=== PATIENT | male | born 1935 | race Two or more races ===

== ENCOUNTER 2017-10-29 16:23 | Inpatient (IN) | payer MEDICARE ==
[2017-10-29] MEDS ORDERED: FUROSEMIDE 10 MG/ML 4 ML VIAL IV STA (17:06)
[2017-10-29] MEDS ORDERED: IPRATROPIUM-ALBUTEROL 3 ML NEB INHALATION STA (17:06)
--- NOTE | 2017-10-29 17:40 | ED ---
SOB HPI <Guillermo Norman - Last Filed: 10/29/17 19:00> - General Source: patient, RN notes reviewed Mode of arrival: wheelchair Limitations: no limitations <Philip Tejada - Last Filed: 10/29/17 19:03> - General Chief Complaint: Shortness of Breath Stated Complaint: SOB Time Seen by Provider: 10/29/17 16:52 - History of Present Illness Initial Comments: This an 82-year-old male presents emergency Department chief complaint of increased shortness of breath, leg swelling and abdominal swelling. Patient has a history of CHF. He does take Lasix 40 mg twice a day. Patient states he tries to double up on it when he notices symptoms. He states though in the last 24 hours he has had wheezing, wet sounding cough. Patient states he does have leg edema. Patient does state that his weight has increased. Patient denies any known fever, chills. He states he feels distended in his abdomen he did have some diarrhea last week. (Philip Tejada) - Related Data Home Medications Medication Instructions Recorded Confirmed Albuterol Inhaler [Ventolin Hfa 2 puff INHALATION RT-Q6H PRN 11/16/14 10/29/17 Inhaler] Budesonide [Pulmicort] 0.5 mg INHALATION RT-BID 11/16/14 10/29/17 Digoxin [Lanoxin] 250 mcg PO HS 11/16/14 10/29/17 Furosemide [Lasix] 40 mg PO BID 11/16/14 10/29/17 Metoprolol Tartrate [Lopressor] 50 mg PO BID 11/16/14 10/29/17 Simvastatin [Zocor] 10 mg PO DAILY 11/16/14 10/29/17 Warfarin [Coumadin] 3.75 mg PO MOTUWETHSA 05/23/16 10/29/17 Warfarin [Coumadin] 7.5 mg PO SUFR 05/23/16 10/29/17 Sacubitril/Valsartan [Entresto 24 1 tab PO BID 10/29/17 10/29/17 mg-26 mg Tablet] Allergies Allergy/AdvReac Type Severity Reaction Status Date / Time No Known Allergies Allergy Verified 10/29/17 16:56 Review of Systems ROS Other: All systems not noted in ROS Statement are negative. <Guillermo Norman - Last Filed: 10/29/17 19:00> ROS Other: All systems not noted in ROS Statement are negative. <Philip Tejada - Last Filed: 10/29/17 19:03> ROS Statement: Those systems with pertinent positive or pertinent negative responses have been documented in the HPI. Past Medical History Past Medical History: Atrial Fibrillation, Asthma, Cancer, COPD, Hypertension Additional Past Medical History / Comment(s): SKIN CANCER, ARTHRITIS, ENLARGED HEART, RT CATARACT.HAD A PNE VACCINE BUT NOT SURE OF DATE. History of Any Multi-Drug Resistant Organisms: None Reported Past Surgical History: Heart Catheterization, Tonsillectomy Additional Past Surgical History / Comment(s): cataract surgery LT EYE. SKIN CA Past Anesthesia/Blood Transfusion Reactions: No Reported Reaction Past Psychological History: No Psychological Hx Reported Smoking Status: Current every day smoker Past Alcohol Use History: Occasional Past Drug Use History: None Reported - Past Family History Father Family Medical History: No Reported History Additional Family Medical History / Comment(s): LIVED TO BE IN HIS MID 90'S - FROM OLD AGE Mother Family Medical History: No Reported History Additional Family Medical History / Comment(s): LIVED TO BE IN HER MID 90'S FROM OLD AGE <Philip Tejada - Last Filed: 10/29/17 19:03> General Exam Limitations: no limitations General appearance: alert, in no apparent distress Head exam: Present: atraumatic, normocephalic, normal inspection ENT exam: Present: normal exam, normal oropharynx, mucous membranes moist Neck exam: Present: normal inspection, full ROM. Absent: tenderness, meningismus, lymphadenopathy Respiratory exam: Present: wheezes, rales. Absent: normal lung sounds bilaterally, respiratory distress, rhonchi, stridor Cardiovascular Exam: Present: regular rate, normal rhythm, normal heart sounds. Absent: systolic murmur, diastolic murmur, rubs, gallop, clicks GI/Abdominal exam: Present: soft, normal bowel sounds. Absent: distended, tenderness, guarding, rebound, rigid Extremities exam: Present: pedal edema Neurological exam: Present: alert, oriented X3, CN II-XII intact Skin exam: Present: warm, dry, intact, normal color. Absent: rash <Philip Tejada - Last Filed: 10/29/17 19:03> Course <Guillermo Norman - Last Filed: 10/29/17 19:00> <Philip Tejada - Last Filed: 10/29/17 19:03> Vital Signs 10/29/17 10/29/17 10/29/17 16:37 17:19 17:27 Temperature 98 F Pulse Rate 60 83 90 Respiratory 20 16 16 Rate Blood Pressure 125/73 O2 Sat by Pulse 96 Oximetry 10/29/17 19:00 Temperature Pulse Rate 79 Respiratory 20 Rate Blood Pressure 141/87 O2 Sat by Pulse 96 Oximetry - Reevaluation(s) Reevaluation #1: 10/29/17 19:00 PA supervision: I did personally do a [id number] evaluation the patient did discuss findings with him and his family members. Patient does demonstrate decreased breath sounds with wheezing and basilar rales. He does have peripheral edema. He will be admitted I did discuss the case with Dr. Li. (Guillermo Norman) Medical Decision Making - Lab Data Result diagrams: 10/29/17 17:35 10/29/17 17:35 <Guillermo Norman - Last Filed: 10/29/17 19:00> - Lab Data Result diagrams: 10/29/17 17:35 10/29/17 17:35 <Philip Tejada - Last Filed: 10/29/17 19:03> - Lab Data Lab Results 10/29/17 10/29/17 10/29/17 Range/Units 17:35 17:35 17:35 WBC 10.4 (3.8-10.6) k/uL RBC 4.71 (4.30-5.90) m/uL Hgb 14.3 (13.0-17.5) gm/dL Hct 45.4 (39.0-53.0) % MCV 96.3 (80.0-100.0) fL MCH 30.3 (25.0-35.0) pg MCHC 31.5 (31.0-37.0) g/dL RDW 14.4 (11.5-15.5) % Plt Count 442 (150-450) k/uL Neutrophils % 79 % Lymphocytes % 11 % Monocytes % 6 % Eosinophils % 2 % Basophils % 1 % Neutrophils # 8.3 H (1.3-7.7) k/uL Lymphocytes # 1.2 (1.0-4.8) k/uL Monocytes # 0.6 (0-1.0) k/uL Eosinophils # 0.2 (0-0.7) k/uL Basophils # 0.1 (0-0.2) k/uL PT (9.0-12.0) sec INR (<1.2) APTT (22.0-30.0) sec Sodium 143 (137-145) mmol/L Potassium 4.5 (3.5-5.1) mmol/L Chloride 105 (98-107) mmol/L Carbon Dioxide 25 (22-30) mmol/L Anion Gap 13 mmol/L BUN 23 H (9-20) mg/dL Creatinine 0.80 (0.66-1.25) mg/dL Est GFR (MDRD) Af Amer >60 (>60 ml/min/1.73 sqM) Est GFR (MDRD) Non-Af >60 (>60 ml/min/1.73 sqM) Glucose 102 H (74-99) mg/dL Calcium 9.0 (8.4-10.2) mg/dL Magnesium 2.1 (1.6-2.3) mg/dL Total Bilirubin 1.4 H (0.2-1.3) mg/dL AST 27 (17-59) U/L ALT 36 (21-72) U/L Alkaline Phosphatase 88 (38-126) U/L Total Creatine Kinase 58 (55-170) U/L CK-MB (CK-2) 1.6 (0.0-2.4) ng/mL CK-MB (CK-2) Rel Index 2.8 Troponin I <0.012 (0.000-0.034) ng/mL NT-Pro-B Natriuret Pep pg/mL Total Protein 6.5 (6.3-8.2) g/dL Albumin 3.7 (3.5-5.0) g/dL Digoxin 0.6 ng/mL 10/29/17 10/29/17 Range/Units 17:35 17:35 WBC (3.8-10.6) k/uL RBC (4.30-5.90) m/uL Hgb (13.0-17.5) gm/dL Hct (39.0-53.0) % MCV (80.0-100.0) fL MCH (25.0-35.0) pg MCHC (31.0-37.0) g/dL RDW (11.5-15.5) % Plt Count (150-450) k/uL Neutrophils % % Lymphocytes % % Monocytes % % Eosinophils % % Basophils % % Neutrophils # (1.3-7.7) k/uL Lymphocytes # (1.0-4.8) k/uL Monocytes # (0-1.0) k/uL Eosinophils # (0-0.7) k/uL Basophils # (0-0.2) k/uL PT 18.4 H (9.0-12.0) sec INR 2.0 H (<1.2) APTT 27.4 (22.0-30.0) sec Sodium (137-145) mmol/L Potassium (3.5-5.1) mmol/L Chloride (98-107) mmol/L Carbon Dioxide (22-30) mmol/L Anion Gap mmol/L BUN (9-20) mg/dL Creatinine (0.66-1.25) mg/dL Est GFR (MDRD) Af Amer (>60 ml/min/1.73 sqM) Est GFR (MDRD) Non-Af (>60 ml/min/1.73 sqM) Glucose (74-99) mg/dL Calcium (8.4-10.2) mg/dL Magnesium (1.6-2.3) mg/dL Total Bilirubin (0.2-1.3) mg/dL AST (17-59) U/L ALT (21-72) U/L Alkaline Phosphatase (38-126) U/L Total Creatine Kinase (55-170) U/L CK-MB (CK-2) (0.0-2.4) ng/mL CK-MB (CK-2) Rel Index Troponin I (0.000-0.034) ng/mL NT-Pro-B Natriuret Pep 4170 pg/mL Total Protein (6.3-8.2) g/dL Albumin (3.5-5.0) g/dL Digoxin ng/mL - EKG Data EKG Comments: EKG performed at 17:12 A. fib rate of 65 QRS 150 QT/QTC 425/440 (Philip Tejada) Disposition <Guillermo Norman - Last Filed: 10/29/17 19:00> <Philip Tejada - Last Filed: 10/29/17 19:03> Clinical Impression: Acute exacerbation of CHF (congestive heart failure), Dyspnea Disposition: ADMITTED IP TO THIS HOSP Condition: Fair Referrals: Anusha Sommers MD [Primary Care Provider] - 1-2 days
[2017-10-29 17:50] LABS: Basophils # (A) 0.1 k/uL (0-0.2); Basophils % (A) 1 %; Eosinophils # (A) 0.2 k/uL (0-0.7); Eosinophils % (A) 2 %; HCT 45.4 % (39.0-53.0); HGB 14.3 gm/dL (13.0-17.5); Lymphocytes # (A) 1.2 k/uL (1.0-4.8); Lymphocytes % (A) 11 %; MCH 30.3 pg (25.0-35.0); MCHC 31.5 g/dL (31.0-37.0); MCV 96.3 fL (80.0-100.0); Mean Platelet Volume 7.4; Monocytes # (A) 0.6 k/uL (0-1.0); Monocytes % (A) 6 %; Neutrophils # (A) 8.3 k/uL (1.3-7.7); Neutrophils % (A) 79 %; Platelet Count 442 k/uL (150-450); RBC 4.71 m/uL (4.30-5.90); RDW 14.4 % (11.5-15.5); WBC 10.4 k/uL (3.8-10.6)
[2017-10-29 18:03] LABS: ALT 36 U/L (21-72); AST 27 U/L (17-59); Albumin 3.7 g/dL (3.5-5.0); Alkaline Phosphatase 88 U/L (38-126); Anion Gap 13 mmol/L; Blood Urea Nitrogen 23 mg/dL (9-20); Carbon Dioxide 25 mmol/L (22-30); Chloride 105 mmol/L (98-107); Digoxin 0.6 ng/mL; Glucose 102 mg/dL (74-99); Magnesium 2.1 mg/dL (1.6-2.3); Partial Thromboplastin Time 27.4 sec (22.0-30.0); Potassium 4.5 mmol/L (3.5-5.1); Prothrombin Time 18.4 sec (9.0-12.0); Sodium 143 mmol/L (137-145); Total Bilirubin 1.4 mg/dL (0.2-1.3); Total Protein 6.5 g/dL (6.3-8.2)
--- NOTE | 2017-10-29 18:05 | XR ---
EXAMINATION TYPE: XR KUB DATE OF EXAM: 10/29/2017 COMPARISON: NONE HISTORY: Pain and distention with diarrhea TECHNIQUE: 2 upright views FINDINGS: There are no abnormal gas collections evident. The bowel gas pattern is unremarkable as see n. The skeletal structures and soft tissues are negative for acute findings. IMPRESSION: Negative examination.
--- NOTE | 2017-10-29 18:07 | XR ---
EXAMINATION: XR chest 2V DATE AND TIME: 10/29/2017 5:57 PM ORDERING PROVIDER: Philip Tejada CLINICAL INDICATION: difficulty breathing TECHNIQUE: PA and lateral COMPARISON: 06/07/2016 DESCRIPTION: Cardiac pacemaker and EKG leads noted. There is a fine reticular pattern of increased density throughout the lungs which silhouettes the pul monary vasculature to a [id number] degree. This is consistent with interstitial phase pulmonary edema, presumably cardiogenic etiology given the mildly enlarged cardiac silhouette. Small bilateral pleural effusions and pleural effusions are evident posteriorly on the lateral radiog raph. The pleural spaces are otherwise unremarkable. The cardiac silhouette is not mildly enlarged similar to the prior study. The skeletal structures are intact without focal findings. The soft tissues are unremarkable. IMPRESSION: FINDINGS CONSISTENT WITH MILD/MODERATE INTERSTITIAL PHASE CARDIAC PULMONARY EDEMA.
[2017-10-29 18:12] LABS: Creatine Kinase 58 U/L (55-170)
[2017-10-29 18:24] LABS: Creatine Kinase MB 1.6 ng/mL (0.0-2.4); Troponin I <0.012 ng/mL (0.000-0.034)
[2017-10-29] MEDS: IPRATROPIUM-ALBUTEROL 3 ML NEB INHALATION SCH (20:20)
[2017-10-29] MEDS ORDERED: NALOXONE 0.4 MG/ML 1 ML VIAL IV PRN (21:16)
[2017-10-29] MEDS ORDERED: MORPHINE SULFATE 2 MG/ML SYRINGE IV PRN (21:16)
[2017-10-29] MEDS ORDERED: ONDANSETRON 4 MG/2 ML VIAL IVP PRN (21:16)
--- NOTE | 2017-10-29 21:59 | P.HPIM ---
History of Present Illness H&P Date: 10/29/17 Chief Complaint: progressive shortness of breath 82 year old male with history of CHF , afib on coumadin. Patient claims to be compliant with his heart medications, and limits his fluid intake to around 1.5-2 L. He has notice progressive increase in his weight, and swelling of his legs along with progressive worsening of shortness of breath ( exertional) over the past 2 weeks, for which he has doubled up on his lasix dose , however without any noticeable benefit. He also reports orthopnea and PNDs, over the past few days, and noticeable limitation to his activity and climbing stairs due to exertional dyspnea along with coughing, however; denies any chest pain, fever, chills, sick contacts, sputum production, recent heart attacks, or any history of CAD or stenting. He dose report that he had a bout of diarrhea about 1.5 months ago that resolved after two days, however since then his bowel movement has been loose, but denies any bloody or melena BMs. He never had colonoscopy and denies weight loss. I interviewed the patient in the ED , he is very pleasant and reports noticeable improvement in his symptoms after a dose of IV lasix, still denies any chest pain but does report increase abd girth and bloating over the past 1 month. Review of Systems Constitutional: Patient denies fever, denies chills, denies night sweating, denies significant weight changes Eyes: Patient denies visual changes, denies eye pain ENT: Patient denies ear pain, denies rhinorrhea, denies sore throat Cardiovascular: as per HPI Respiratory:Patient as per HPI Gastrointestinal: Patient denies constipation, denies nausea, denies vomiting , denies abdominal pain Genitourinary: Patient denies dysuria, denies hematuria, denies changes in urinary habits, denies genital lesions Musculoskeletal: Patient denies muscle pain, denies joint pain Psychiatric: Patient denies changes in mood or memory, denies suicidal ideation, denies anxiety Endocrine: Patient denies heat intolerance, denies cold intolerance, denies excessive thirst, denies polyuria Neurological: Patient denies focal neurologic deficits, denies weakness, denies numbness, denies tingling Hem/Lymphatic: Patient denies bleeding tendency, denies bruising, denies swollen lymph glands Allergic/Immun: Patient denies recent allergic reactions Skin: Patient denies rashes, denies pruritis, denies ulcers Past Medical History Past Medical History: Atrial Fibrillation, Asthma, Cancer, COPD, Hypertension Additional Past Medical History / Comment(s): SKIN CANCER, ARTHRITIS, ENLARGED HEART, RT CATARACT.HAD A PNE VACCINE BUT NOT SURE OF DATE. History of Any Multi-Drug Resistant Organisms: None Reported Past Surgical History: Heart Catheterization, Tonsillectomy Additional Past Surgical History / Comment(s): cataract surgery LT EYE. SKIN CA Past Anesthesia/Blood Transfusion Reactions: No Reported Reaction Past Psychological History: No Psychological Hx Reported Smoking Status: Current every day smoker Past Alcohol Use History: Occasional Past Drug Use History: None Reported - Past Family History Father Family Medical History: No Reported History Additional Family Medical History / Comment(s): LIVED TO BE IN HIS MID 90'S - FROM OLD AGE Mother Family Medical History: No Reported History Additional Family Medical History / Comment(s): LIVED TO BE IN HER MID 90'S FROM OLD AGE Medications and Allergies Home Medications Medication Instructions Recorded Confirmed Type Albuterol Inhaler [Ventolin Hfa 2 puff INHALATION RT-Q6H PRN 11/16/14 10/29/17 History Inhaler] Budesonide [Pulmicort] 0.5 mg INHALATION RT-BID 11/16/14 10/29/17 History Digoxin [Lanoxin] 250 mcg PO HS 11/16/14 10/29/17 History Furosemide [Lasix] 40 mg PO BID 11/16/14 10/29/17 History Metoprolol Tartrate [Lopressor] 50 mg PO BID 11/16/14 10/29/17 History Simvastatin [Zocor] 10 mg PO DAILY 11/16/14 10/29/17 History Warfarin [Coumadin] 3.75 mg PO MOTUWETHSA 05/23/16 10/29/17 History Warfarin [Coumadin] 7.5 mg PO SUFR 05/23/16 10/29/17 History Sacubitril/Valsartan [Entresto 24 1 tab PO BID 10/29/17 10/29/17 History mg-26 mg Tablet] Allergies Allergy/AdvReac Type Severity Reaction Status Date / Time No Known Allergies Allergy Verified 10/29/17 16:56 Physical Exam Vitals: Vital Signs Temp Pulse Resp BP Pulse Ox 10/29/17 20:31 71 16 10/29/17 20:20 67 18 10/29/17 19:58 98.1 F 75 22 120/72 97 10/29/17 19:00 79 20 141/87 96 10/29/17 17:27 90 16 10/29/17 17:19 83 16 10/29/17 16:37 98 F 60 20 125/73 96 Intake and Output 10/29/17 10/29/17 10/29/17 06:59 14:59 22:59 Output Total 225 Balance -225 Output: Urine 225 Other: Weight 97.069 kg Patient Weight 10/30/17 06:59 Weight 97.069 kg Constitutional: No acute distress, conversant, pleasant Eyes: Anicteric sclerae, moist conjunctiva, no lid-lag Pupils equal round reactive to light ENMT: NC/AT Oropharynx clear, no erythema, exudates Neck: Supple, FROM, no masses, or JVD No carotid bruits No thyromegaly Lungs: Decrease breath sounds, with find inspiratory rales at lung bases along with slightly prolonged expiratory phase with scattered end expiratory wheezes Clear to percussion Normal respiratory effort, no accessory muscle use Cardiovascular: Heart irregularly irregular in rate and rhythm, + systolic murmur, No gallops, or rubs +2 peripheral edema bilateral legs pitting in nature. Abdominal: mildly distended Nontender, no guarding, rebound or rigidity Abdomen moving with respiration Normoactive bowel sounds No hepatomegaly, No splenomegaly No palpable mass No abdominal wall hernia noted Skin: Normal temperature (except for cold feet biaterally ), tone, texture , turgor No induration No subcutaneous nodules No rash, lesions No ulcers Extremities: No digital cyanosis No clubbing Pedal pulses intact and symmetrical Radial pulses intact and symmetrical No calf tenderness Psychiatric: Alert and oriented to person, place Appropriate affect fair judgment Neuro Muscles Strength 4/5 in all 4 extremities Sensation to light touch grossly present throughout Cranial nerves II-XII grossly intact No focal sensory deficits Lymphatics: no palpable cervical or supraclavicular , or inguinal lymph nodes Results CBC & Chem 7: 10/29/17 17:35 10/29/17 17:35 Labs: Abnormal Lab Results - Last 24 Hours (Table) 10/29/17 10/29/17 10/29/17 Range/Units 17:35 17:35 17:35 Neutrophils # 8.3 H (1.3-7.7) k/uL PT 18.4 H (9.0-12.0) sec INR 2.0 H (<1.2) BUN 23 H (9-20) mg/dL Glucose 102 H (74-99) mg/dL Total Bilirubin 1.4 H (0.2-1.3) mg/dL Assessment and Plan Assessment: 82 year old male presented with progressive shortness of breath along with orthopnea, PNDs, and bilateral leg swelling, patient is known for history of heart failure s/p ICD, and afib on coumadin (1) Acute exacerbation of CHF (congestive heart failure) Narrative/Plan: acute exacerbation of left systolic congestive heart failure with most recent ECHOcardiogram from 2016 suggesting a LVEF of 20-25% patient claims compliance with medications , and fluid intake of around 1.5-2 L daily continue with entresto Recheck ECHOcardiogram, evaluate LVEF and progression of aortic valve disease cardiac monitoring elevate head of the bed IV lasix Morphine PRN IV strict I/Os fluid restriction to 1.2 L daily weight Oxygen PRN NC keep O2 sat>92% cardiology consultation consider starting Spironolactone upon discharge Current Visit: Yes Status: Acute Code(s): I50.9 - HEART FAILURE, UNSPECIFIED SNOMED Code(s): 77564643 (2) A-fib Narrative/Plan: chronic afib, with valvular heart disease, on coumadin rate controlled now continue metoprolol and digoxin Current Visit: No Status: Chronic Code(s): I48.91 - UNSPECIFIED ATRIAL FIBRILLATION SNOMED Code(s): 19949264 (3) HTN (hypertension) Narrative/Plan: controlled now continue home meds Current Visit: No Status: Chronic Code(s): I10 - ESSENTIAL (PRIMARY) HYPERTENSION SNOMED Code(s): 23393896 (4) Hyperlipemia Narrative/Plan: continue home meds denies any history of CAD Current Visit: No Status: Chronic Code(s): E78.5 - HYPERLIPIDEMIA, UNSPECIFIED SNOMED Code(s): 77972702 (5) DVT prophylaxis Narrative/Plan: on coumadin for afib Current Visit: Yes Status: Acute Code(s): NCE9315 - SNOMED Code(s): 126352888 (6) Smoking 1/2 pack a day or less Narrative/Plan: counseled to quit smoking nicotine replacement therapy Current Visit: Yes Status: Acute Code(s): F17.210 - NICOTINE DEPENDENCE, CIGARETTES, UNCOMPLICATED SNOMED Code(s): 44835371 (7) Loose bowel movement Narrative/Plan: counseled to consider age appropriate cancer screening testing if continue to have diarrhea especially if he notices bloody bowel movement Current Visit: Yes Status: Acute Code(s): R19.7 - DIARRHEA, UNSPECIFIED SNOMED Code(s): 37637675 (8) COPD (chronic obstructive pulmonary disease) Narrative/Plan: continue pulmicort duoneb PRN oxygen NC counseled to avoid smoking and smoke exposure Current Visit: Yes Status: Chronic Code(s): J44.9 - CHRONIC OBSTRUCTIVE PULMONARY DISEASE, UNSPECIFIED SNOMED Code(s): 89162052 Plan: Preformed a thorough record review from recent hospitalization from 2016, for which ICD was placed, and his most recent echo suggested LVEF of 20-25% with global hypokinesis, and moderate aortic valve stenosis Surrogate decision-maker: sister Elham, and niece Radha CODE STATUS:full code but no intermediate life sustaining measures DVT prophylaxis: on coumadin for valvular Afib Discussed with: Patient, ER, family , RN Anticipated discharge: 48-72 hours, needs aggressive IV diuresis and reevaluate progression of heart failure and aortic valve disease Anticipated discharge place: home with home care
[2017-10-29] MEDS: METOPROLOL TARTRATE 50 MG TAB PO SCH (22:24)
[2017-10-29] MEDS: DIGOXIN 250 MCG TAB PO SCH (22:24)
[2017-10-29] MEDS: ATORVASTATIN 10 MG TAB PO SCH (22:25)
[2017-10-29] MEDS: SACUBITRIL/VALSARTAN 24 MG-26 MG TABLET PO SCH (22:25)
[2017-10-29] MEDS: WARFARIN 7.5 MG TAB PO SCH (22:27)
[2017-10-29 23:39] VITALS: BMI 29.8
[2017-10-30] MEDS: IPRATROPIUM-ALBUTEROL 3 ML NEB INHALATION SCH ×6 (00:01→19:53)
[2017-10-30] MEDS: FUROSEMIDE 10 MG/ML 4 ML VIAL IV SCH ×2 (06:00→17:22)
[2017-10-30] MEDS: BUDESONIDE 0.5 MG/2 ML NEBU INHALATION SCH ×2 (08:24→19:53)
[2017-10-30 08:34] LABS: Basophils # (A) 0.1 k/uL (0-0.2); Basophils % (A) 1 %; Eosinophils # (A) 0.1 k/uL (0-0.7); Eosinophils % (A) 1 %; HCT 43.6 % (39.0-53.0); HGB 13.7 gm/dL (13.0-17.5); Hypochromasia Slight; Lymphocytes % (A) 9 %; MCH 30.4 pg (25.0-35.0); MCHC 31.4 g/dL (31.0-37.0); MCV 96.8 fL (80.0-100.0); Mean Platelet Volume 7.2; Monocytes # (A) 0.6 k/uL (0-1.0); Monocytes % (A) 5 %; Neutrophils # (A) 9.6 k/uL (1.3-7.7); Neutrophils % (A) 84 %; Platelet Count 424 k/uL (150-450); RDW 14.3 % (11.5-15.5); WBC 11.4 k/uL (3.8-10.6)
[2017-10-30 09:01] LABS: Anion Gap 11 mmol/L; Blood Urea Nitrogen 21 mg/dL (9-20); Carbon Dioxide 27 mmol/L (22-30); Chloride 104 mmol/L (98-107); Glucose 102 mg/dL (74-99); INR 1.9 (<1.2); Potassium 4.1 mmol/L (3.5-5.1); Prothrombin Time 17.7 sec (9.0-12.0); Sodium 142 mmol/L (137-145)
[2017-10-30 09:02] LABS: ALT 35 U/L (21-72); AST 20 U/L (17-59); Albumin 3.6 g/dL (3.5-5.0); Alkaline Phosphatase 81 U/L (38-126); Calcium 9.2 mg/dL (8.4-10.2); Total Bilirubin 1.6 mg/dL (0.2-1.3); Total Protein 6.2 g/dL (6.3-8.2)
[2017-10-30] MEDS: SACUBITRIL/VALSARTAN 24 MG-26 MG TABLET PO SCH ×2 (09:50→22:01)
[2017-10-30] MEDS: METOPROLOL TARTRATE 50 MG TAB PO SCH ×2 (09:50→22:01)
[2017-10-30] MEDS: NICOTINE 14MG/24HR PATCH TRANSDERM SCH (09:52)
--- NOTE | 2017-10-30 13:11 | P.CRDCN ---
History of Present Illness Consult date: 10/30/17 History of present illness: Mr. Ingram is a pleasant 82-year-old male past medical history significant for non-ischemic cardiomyopathy status post AICD placement, chronic persistent atrial fibrillation on group home anticoagulation with coumadin, hypertension, COPD and chronic tobacco use. He sees Dr. Beckett in the office. We have been asked to see him in consultation for increasing shortness of breath. He states he chronically has shortness of breath first thing in the morning upon waking up and getting around but over the past few days this has been much worse. It typically resolves within 5 minutes and now is persisting much longer. He also has noticed increased swelling of his lower extremities and weight gain. HEENT denies PND or orthopnea. He denies associated chest pain, dizziness, palpitations, nausea or vomiting. EKG on arrival reveals atrial fibrillation with controlled ventricular response rate of 65 with left bundle branch pattern. This is consistent with old EKG. Chest xray findings consistent with mild/moderate interstitial pulmonary edema. Laboratory data reviewed, WBC 11.4, hemoglobin 13.7, platelets 424, INR 1.9, potassium 4.1, magnesium 2.1, creatinine 0.89, proBNP 4170, cardiac enzymes negative 1, digoxin level 0.6, TSH 2.07. Current cardiac medications include Coumadin, simvastatin 10 mg daily, entresto twice a day, Lopressor 51 g twice a day, Lasix 40 mg twice a day and digoxin 250 g daily. Most recent echocardiogram was performed in the office March 2017 reveals decreased left ventricular systolic function with ejection fraction 35% with mild mitral regurg and moderate aortic regurgitation. Review of Systems At the time of my exam: CONSTITUTIONAL: Denies fever. Denies chills. EYES: Denies blurred vision. Denies vision changes. Denies eye pain. EARS, NOSE, MOUTH & THROAT: Denies headache. Denies sore throat. Denies ear pain. CARDIOVASCULAR: Denies chest pain. Complains of shortness of breath. Denies orthopnea. Denies PND. Denies palpitations. RESPIRATORY: Denies cough. GASTROINTESTINAL: Denies abdominal pain. Complains of diarrhea. Denies constipation. Denies nausea. Denies vomiting. MUSCULOSKELETAL: Denies myalgias. INTEGUMENTARY: Denies pruitis. Denies rash. NEUROLOGIC: Denies numbness. Denies tingling. Denies weakness. PSYCHIATRIC: Denies anxiety. Denies depression. ENDOCRINE: Denies fatigue. Denies weight change. Denies polydipsia. Denies polyurina. GENITOURINARY: Denies burning, hematuria or urgency with micturation. HEMATOLOGIC: Denies history of anemia. Denies bleeding. Past Medical History Past Medical History: Atrial Fibrillation, Asthma, Cancer, COPD, Hypertension Additional Past Medical History / Comment(s): SKIN CANCER, ARTHRITIS, ENLARGED HEART, RT CATARACT.HAD A PNE VACCINE BUT NOT SURE OF DATE. History of Any Multi-Drug Resistant Organisms: None Reported Past Surgical History: Heart Catheterization, Tonsillectomy Additional Past Surgical History / Comment(s): cataract surgery LT EYE. SKIN CA Past Anesthesia/Blood Transfusion Reactions: No Reported Reaction Past Psychological History: No Psychological Hx Reported Smoking Status: Current every day smoker Past Alcohol Use History: Occasional Past Drug Use History: None Reported - Past Family History Father Family Medical History: No Reported History Additional Family Medical History / Comment(s): LIVED TO BE IN HIS MID 90'S - FROM OLD AGE Mother Family Medical History: No Reported History Additional Family Medical History / Comment(s): LIVED TO BE IN HER MID 90'S FROM OLD AGE Medications and Allergies Home Medications Medication Instructions Recorded Confirmed Type Albuterol Inhaler [Ventolin Hfa 2 puff INHALATION RT-Q6H PRN 11/16/14 10/29/17 History Inhaler] Budesonide [Pulmicort] 0.5 mg INHALATION RT-BID 11/16/14 10/29/17 History Digoxin [Lanoxin] 250 mcg PO HS 11/16/14 10/29/17 History Furosemide [Lasix] 40 mg PO BID 11/16/14 10/29/17 History Metoprolol Tartrate [Lopressor] 50 mg PO BID 11/16/14 10/29/17 History Simvastatin [Zocor] 10 mg PO DAILY 11/16/14 10/29/17 History Warfarin [Coumadin] 3.75 mg PO MOTUWETHSA 05/23/16 10/29/17 History Warfarin [Coumadin] 7.5 mg PO SUFR 05/23/16 10/29/17 History Sacubitril/Valsartan [Entresto 24 1 tab PO BID 01/22/18 01/22/18 History mg-26 mg Tablet] Allergies Allergy/AdvReac Type Severity Reaction Status Date / Time No Known Allergies Allergy Verified 10/29/17 16:56 Physical Exam Vitals: Vital Signs Temp Pulse Pulse Resp BP BP Pulse Ox 10/30/17 12:51 78 10/30/17 12:35 78 10/30/17 08:43 82 10/30/17 08:27 76 97 10/30/17 07:00 97.9 F 83 18 135/79 97 10/30/17 05:59 139/75 10/30/17 03:59 80 10/30/17 03:49 86 10/30/17 00:15 76 10/30/17 00:01 72 10/29/17 23:34 97.7 F 71 17 123/78 97 10/29/17 23:06 97.1 F L 86 22 116/76 97 10/29/17 22:28 75 24 143/71 96 10/29/17 20:31 71 16 10/29/17 20:20 67 18 10/29/17 19:58 98.1 F 75 22 120/72 97 10/29/17 19:00 79 20 141/87 96 10/29/17 17:27 90 16 10/29/17 17:19 83 16 10/29/17 16:37 98 F 60 20 125/73 96 Intake and Output 10/29/17 10/30/17 10/30/17 22:59 06:59 14:59 Output Total 225 300 600 Balance -225 -300 -600 Output: Urine 225 300 600 Other: Voiding Method Toilet Toilet Urinal Urinal Weight 97 kg 97 kg 97 kg Patient Weight 10/31/17 06:59 Weight 97 kg Blood pressure 135/79 heart rate 83 afebrile GENERAL: This is a 82-year-old male in no apparent distress at the time of my examination. HEENT: Head is atraumatic, normocephalic. Pupils are equal, round. Sclerae anicteric. Conjunctivae are clear. Mucous membranes of the mouth are moist. Neck is supple. There is no jugular venous distention. No carotid bruit is heard. LUNGS: Faint expiratory wheezes, bibasilar rales and no rhonchi. No chest wall tenderness is noted on palpation or with deep breathing. HEART: Irregular rate and rhythm with systolic ejection murmur at the base, no rubs or gallops. S1 and S2 heard. ABDOMEN: Soft, nontender. Bowel sounds are heard. No organomegaly noted. EXTREMITIES: 1+ pitting bilateral lower extremity edema and no calf tenderness noted. VASCULAR: Radial and dorsalis pedis pulses palpated, no evidence of clubbing. NEUROLOGIC: Patient is awake, alert and oriented x3. Results 10/30/17 07:40 10/30/17 07:40 Cardiac Enzymes 10/29/17 10/29/17 10/30/17 Range/Units 17:35 17:35 07:40 AST 27 20 (17-59) U/L CK-MB (CK-2) 1.6 (0.0-2.4) ng/mL Troponin I <0.012 (0.000-0.034) ng/mL Coagulation 10/29/17 10/30/17 Range/Units 17:35 07:40 PT 18.4 H 17.7 H (9.0-12.0) sec APTT 27.4 (22.0-30.0) sec CBC 10/29/17 10/30/17 Range/Units 17:35 07:40 WBC 10.4 11.4 H (3.8-10.6) k/uL RBC 4.71 4.50 (4.30-5.90) m/uL Hgb 14.3 13.7 (13.0-17.5) gm/dL Hct 45.4 43.6 (39.0-53.0) % Plt Count 442 424 (150-450) k/uL Comprehensive Metabolic Panel 10/29/17 10/30/17 Range/Units 17:35 07:40 Sodium 143 142 (137-145) mmol/L Potassium 4.5 4.1 (3.5-5.1) mmol/L Chloride 105 104 (98-107) mmol/L Carbon Dioxide 25 27 (22-30) mmol/L BUN 23 H 21 H (9-20) mg/dL Creatinine 0.80 0.89 (0.66-1.25) mg/dL Glucose 102 H 102 H (74-99) mg/dL Calcium 9.0 9.2 (8.4-10.2) mg/dL AST 27 20 (17-59) U/L ALT 36 35 (21-72) U/L Alkaline Phosphatase 88 81 (38-126) U/L Total Protein 6.5 6.2 L (6.3-8.2) g/dL Albumin 3.7 3.6 (3.5-5.0) g/dL Current Medications Generic Name Dose Route Start Last Admin Trade Name Freq PRN Reason Stop Dose Admin Albuterol/Ipratropium 3 ml 10/29/17 20:00 10/30/17 12:34 Duoneb 0.5 Mg-3 Mg/3 Ml Soln INHALATION 3 ml RT-Q4H MARILYN Administration Atorvastatin Calcium 10 mg 10/29/17 21:15 10/29/17 22:25 Lipitor PO 10 mg HS MARILYN Administration Budesonide 0.5 mg 10/30/17 08:00 10/30/17 08:24 Pulmicort INHALATION 0.5 mg RT-BID MARILYN Administration Digoxin 250 mcg 10/29/17 21:15 10/29/17 22:24 Lanoxin PO 250 mcg HS MARILYN Administration Furosemide 40 mg 10/30/17 06:00 10/30/17 06:00 Lasix IV 40 mg Q12H MARILYN Administration Metoprolol Tartrate 50 mg 10/29/17 21:15 10/30/17 09:50 Lopressor PO 50 mg BID MARILYN Administration Miscellaneous Information 1 each 10/29/17 21:12 Coumadin Per Pharmacy MISCELLANE DIRECTED PRN Per Protocol Morphine Sulfate 4 mg 10/29/17 21:16 Morphine Sulfate (Inj) IV Q4HR PRN Severe Pain Naloxone HCl 0.2 mg 10/29/17 21:16 Narcan IV Q2M PRN Opioid Reversal Nicotine 1 patch 10/30/17 09:00 10/30/17 09:52 Habitrol 14mg/24hr Patch TRANSDERM Not Given DAILY [facility] Ondansetron HCl 4 mg 10/29/17 21:16 Zofran IVP Q8HR PRN Nausea And Vomiting Sacubitril/Valsartan 1 each 10/29/17 21:15 10/30/17 09:50 Entresto 24 Mg-26 Mg Tablet PO 1 each BID MARILYN Administration Warfarin Sodium 3.75 mg 10/29/17 21:30 10/29/17 22:27 Coumadin PO 3.75 mg [id number]@1800 MARILYN Administration Warfarin Sodium 7.5 mg 11/02/17 18:00 Coumadin PO SuFr@1800 MARILYN Intake and Output 10/29/17 10/30/17 10/30/17 22:59 06:59 14:59 Output Total 225 300 600 Balance -225 -300 -600 Output: Urine 225 300 600 Other: Voiding Method Toilet Toilet Urinal Urinal Weight 97 kg 97 kg 97 kg Patient Weight 10/31/17 06:59 Weight 97 kg 10/30/17 07:40 10/30/17 07:40 Assessment and Plan Assessment: ASSESSMENT 1. Acute on chronic systolic heart failure 2. Chronic persistent atrial fibrillation on long-term anticoagulation with controlled ventricular response 3. Hypertension 4. Dyslipidemia 5. COPD 6. Chronic tobacco abuse PLAN Obtain 2-D echocardiogram and Doppler study to assess cardiac structure and function. Continue with Lasix IV 40 mg twice a day. Strict intake and output. Daily weights. Continue entresto, metoprolol, digoxin and atorvastatin as previously ordered. Further recommendations based upon clinical course. Thank you kindly for this consultation. Nurse Practitioner note has been reviewed, I agree with a documented findings and plan of care. Patient was seen and examined.
--- NOTE | 2017-10-30 16:16 | P.PN ---
Subjective Progress Note Date: 10/30/17 Principal diagnosis: SOB Patient is feeling better today, he stated that the shortness of breath is 50% better compared to when he came in. Objective - Vital Signs Vital signs: Vital Signs Temp 97.6 F 10/30/17 15:00 Pulse 80 10/30/17 15:52 Resp 18 10/30/17 15:00 BP 114/64 10/30/17 15:00 Pulse Ox 97 10/30/17 15:51 Intake & Output 10/29/17 10/30/17 10/30/17 18:59 06:59 18:59 Output Total 525 800 Balance -525 -800 Weight 97.069 kg 97 kg 97 kg Output: Urine 525 800 Other: Voiding Method Toilet Toilet Urinal Urinal - Exam Constitutional: No acute distress, conversant, pleasant Eyes:Anicteric sclerae, moist conjunctiva, no lid-lag, PERRLA, ENMT: Oropharynx clear, no erythema, exudates Neck: Supple, FROM, no masses, or JVD, No carotid bruits, No thyromegaly Lungs: bibasilar crackles, Clear to percussion, Normal respiratory effort, no accessory muscle use Cardiovascular: Heart regular in rate and rhythm, No murmurs, gallops, or rubs, 1+ peripheral edema Abdominal: Soft, Nontender, no guarding, rebound or rigidity, Normoactive bowel sounds, No hepatomegaly, No splenomegaly, No palpable mass Skin: Normal temperature, tone, texture, turgor, no induration, No subcutaneous nodules, No rash, lesions, No ulcers Extremities: No digital cyanosis, No clubbing, Pedal pulses intact and symmetrical, Radial pulses intact and symmetrical, No calf tenderness Psychiatric: Alert and oriented to person, place and time, appropriate affect, intact judgement Neuro: Muscles Strength 5/5 in all 4 extremities, Sensation to light touch grossly present throughout, Cranial nerves II-XII grossly intact, no focal sensory deficits - Labs CBC & Chem 7: 10/30/17 07:40 10/30/17 07:40 Labs: Abnormal Lab Results - Last 24 Hours (Table) 10/29/17 10/29/17 10/29/17 Range/Units 17:35 17:35 17:35 WBC (3.8-10.6) k/uL Neutrophils # 8.3 H (1.3-7.7) k/uL PT 18.4 H (9.0-12.0) sec INR 2.0 H (<1.2) BUN 23 H (9-20) mg/dL Glucose 102 H (74-99) mg/dL Total Bilirubin 1.4 H (0.2-1.3) mg/dL Total Protein (6.3-8.2) g/dL 10/30/17 10/30/17 10/30/17 Range/Units 07:40 07:40 07:40 WBC 11.4 H (3.8-10.6) k/uL Neutrophils # 9.6 H (1.3-7.7) k/uL PT 17.7 H (9.0-12.0) sec INR 1.9 H (<1.2) BUN 21 H (9-20) mg/dL Glucose 102 H (74-99) mg/dL Total Bilirubin 1.6 H (0.2-1.3) mg/dL Total Protein 6.2 L (6.3-8.2) g/dL Assessment and Plan Plan: (1) Acute exacerbation of CHF (congestive heart failure)/HX of non-ischemic cardiomyopathy S/P AICD placement: Most recent ECHOcardiogram from 2016 LVEF of 20-25%, will repeat. Continue diuresis with IV Lasix 40 mg bid continue with entresto cardiac monitoring Morphine PRN IV strict I/Os, daily weights fluid restriction to 2 L daily Oxygen PRN NC keep O2 sat>92% Cardiology consultation Consider starting Spironolactone upon discharge (2) Chronic afib, with valvular heart disease, on coumadin, Essential HTN ( hypertension), Hyperlipemia, COPD (chronic obstructive pulmonary disease) Controlled continue home meds (5) DVT prophylaxis on coumadin for afib (6) Smoking 1/2 pack a day or less Counseled to quit smoking
[2017-10-30] MEDS: WARFARIN 7.5 MG TAB PO SCH (17:22)
[2017-10-30] MEDS: ATORVASTATIN 10 MG TAB PO SCH (22:01)
[2017-10-30] MEDS: DIGOXIN 250 MCG TAB PO SCH (22:01)
[2017-10-31] MEDS: IPRATROPIUM-ALBUTEROL 3 ML NEB INHALATION SCH ×6 (04:32→19:04)
[2017-10-31 05:26] LABS: Anion Gap 9 mmol/L; Blood Urea Nitrogen 26 mg/dL (9-20); Calcium 8.9 mg/dL (8.4-10.2); Carbon Dioxide 26 mmol/L (22-30); Chloride 106 mmol/L (98-107); Glucose 102 mg/dL (74-99); Magnesium 2.1 mg/dL (1.6-2.3); Phosphorus 4.3 mg/dL (2.5-4.5); Potassium 4.5 mmol/L (3.5-5.1); Sodium 141 mmol/L (137-145)
[2017-10-31] MEDS: FUROSEMIDE 10 MG/ML 4 ML VIAL IV SCH ×2 (05:32→15:32)
[2017-10-31] MEDS: SACUBITRIL/VALSARTAN 24 MG-26 MG TABLET PO SCH ×2 (07:22→21:47)
[2017-10-31] MEDS: METOPROLOL TARTRATE 50 MG TAB PO SCH ×2 (07:22→21:47)
[2017-10-31] MEDS: NICOTINE 14MG/24HR PATCH TRANSDERM SCH (07:22)
[2017-10-31] MEDS: BUDESONIDE 0.5 MG/2 ML NEBU INHALATION SCH ×2 (08:42→19:04)
--- NOTE | 2017-10-31 09:57 | P.PN ---
Subjective Progress Note Date: 10/31/17 Mr. 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 He sees Dr. Beckett in the office. We have been asked to see him in consultation for increasing shortness of breath. He states he chronically has shortness of breath first thing in the morning upon waking up and getting around but over the past few days this has been much worse. It typically resolves within 5 minutes and now is persisting much longer. He also has noticed increased swelling of his lower extremities and weight gain. HEENT denies PND or orthopnea. He denies associated chest pain, dizziness, palpitations, nausea or vomiting. EKG on arrival reveals atrial fibrillation with controlled ventricular response rate of 65 with left bundle branch pattern. This is consistent with old EKG. Chest xray findings consistent with mild/moderate interstitial pulmonary edema. Laboratory data reviewed, WBC 11.4, hemoglobin 13.7, platelets 424, INR 1.9, potassium 4.1, magnesium 2.1, creatinine 0.89, proBNP 4170, cardiac enzymes negative 1, digoxin level 0.6, TSH 2.07. Current cardiac medications include Coumadin, simvastatin 10 mg daily, entresto twice a day, Lopressor 51 g twice a day, Lasix 40 mg twice a day and digoxin 250 g daily. Most recent echocardiogram was performed in the office March 2017 reveals decreased left ventricular systolic function with ejection fraction 35% with mild mitral regurg and moderate aortic regurgitation. 10/31/2017 Mr. Ingram continues to complain of shortness of breath. He states this morning after eating breakfast he became acutely dyspneic. Denies chest pain, palpitations, nausea, diaphoresis or vomiting. Negative fluid balance yesterday of 970ml with no changes in weight. He continues to have lower extremity edema. Last night he had an episode of non-sustained VT on telemetry. He was symptomatic at the time, AICD did not fire. Creatinine 1.0, potassium 4.5, magnesium 2.1. Objective - Vital Signs Vital signs: Vital Signs Temp 97.8 F 10/31/17 07:00 Pulse 82 10/31/17 09:00 Resp 20 10/31/17 07:00 BP 130/77 10/31/17 07:00 Pulse Ox 97 10/31/17 07:00 Intake & Output 10/30/17 10/31/17 10/31/17 18:59 06:59 18:59 Intake Total 540 790 Output Total 1700 600 800 Balance -1160 190 -800 Weight 97 kg 98 kg Intake: Oral 790 Other 540 Output: Urine 1700 600 800 Other: Voiding Method Toilet Toilet Urinal Urinal # Voids 300 # Bowel Movements 2 - Exam Blood pressure 130/77 heart rate 88 afebrile GENERAL: Well-appearing, well-nourished and in no acute distress. NECK: Supple without JVD or thyromegaly. LUNGS: expiratory wheezes throughout. Bibasilar rales. No rhonchi. Respirations equal and unlabored. HEART: Irregular rate and rhythm withsystolic ejection murmurat the base,no rubs or gallops. S1 and S2 heard. EXTREMITIES: 1+ pitting bilateral lower extremity edema with no calf tenderness and normal range of motion. Pulses intact. - Labs CBC & Chem 7: 10/30/17 07:40 10/31/17 01:15 Labs: Abnormal Lab Results - Last 24 Hours (Table) 10/31/17 Range/Units 01:15 BUN 26 H (9-20) mg/dL Glucose 102 H (74-99) mg/dL Assessment and Plan Assessment: ASSESSMENT 1. Acute on chronic systolic heart failure 2. Chronic persistent atrial fibrillation on long-term anticoagulation with controlled ventricular response 3. Hypertension 4. Dyslipidemia 5. COPD 6. Chronic tobacco abuse 7. Non-sustained VT with AICD in place PLAN Continue with Lasix IV 40 mg twice a day. Strict intake and output. Daily weights. Continue entresto, metoprolol, digoxin and atorvastatin as previously ordered. Further recommendations based upon clinical course. Thank you kindly for this consultation. Nurse Practitioner note has been reviewed, I agree with a documented findings and plan of care. Patient was seen and examined.
--- NOTE | 2017-10-31 12:35 | P.PN ---
Subjective Progress Note Date: 10/31/17 Principal diagnosis: SOB Patient is still having shortness of breath yuniel upon ambulation. Objective - Vital Signs Vital signs: Vital Signs Temp 97.8 F 10/31/17 07:00 Pulse 80 10/31/17 12:07 Resp 20 10/31/17 08:00 BP 130/77 10/31/17 07:00 Pulse Ox 97 10/31/17 07:00 Intake & Output 10/30/17 10/31/17 10/31/17 18:59 06:59 18:59 Intake Total 540 790 Output Total 1700 600 800 Balance -1160 190 -800 Weight 97 kg 98 kg Intake: Oral 790 Other 540 Output: Urine 1700 600 800 Other: Voiding Method Toilet Toilet Toilet Urinal Urinal Urinal # Voids 300 # Bowel Movements 2 - Exam Constitutional: No acute distress, conversant, pleasant Eyes:Anicteric sclerae, moist conjunctiva, no lid-lag, PERRLA, ENMT: Oropharynx clear, no erythema, exudates Neck: Supple, FROM, no masses, or JVD, No carotid bruits, No thyromegaly Lungs: bibasilar crackles, Clear to percussion, Normal respiratory effort, no accessory muscle use Cardiovascular: Heart regular in rate and rhythm, No murmurs, gallops, or rubs, 1+ peripheral edema Abdominal: Soft, Nontender, no guarding, rebound or rigidity, Normoactive bowel sounds, No hepatomegaly, No splenomegaly, No palpable mass Skin: Normal temperature, tone, texture, turgor, no induration, No subcutaneous nodules, No rash, lesions, No ulcers Extremities: No digital cyanosis, No clubbing, Pedal pulses intact and symmetrical, Radial pulses intact and symmetrical, No calf tenderness Psychiatric: Alert and oriented to person, place and time, appropriate affect, intact judgement Neuro: Muscles Strength 5/5 in all 4 extremities, Sensation to light touch grossly present throughout, Cranial nerves II-XII grossly intact, no focal sensory deficits - Labs CBC & Chem 7: 10/30/17 07:40 10/31/17 01:15 Labs: Abnormal Lab Results - Last 24 Hours (Table) 10/31/17 Range/Units 01:15 BUN 26 H (9-20) mg/dL Glucose 102 H (74-99) mg/dL Assessment and Plan Plan: (1) Acute exacerbation of CHF (congestive heart failure)/HX of non-ischemic cardiomyopathy S/P AICD placement: Most recent ECHOcardiogram from 2016 LVEF of 20-25%, repeat pending Continue diuresis with IV Lasix 40 mg bid continue with entresto, digoxin and metoprolol. cardiac monitoring strict I/Os, daily weights Fluid restriction to 2 L daily Cardiology following (2) Chronic afib, with valvular heart disease, on coumadin, Essential HTN ( hypertension), Hyperlipemia, COPD (chronic obstructive pulmonary disease) Controlled continue home meds (5) DVT prophylaxis on coumadin for afib (6) Smoking 1/2 pack a day or less Counseled to quit smoking
[2017-10-31 13:24] LABS: Prothrombin Time 18.3 sec (9.0-12.0)
[2017-10-31] MEDS: WARFARIN 7.5 MG TAB PO SCH (17:25)
[2017-10-31] MEDS: DIGOXIN 250 MCG TAB PO SCH (21:47)
[2017-10-31] MEDS: ATORVASTATIN 10 MG TAB PO SCH (21:48)
[2017-11-01] MEDS: IPRATROPIUM-ALBUTEROL 3 ML NEB INHALATION PRN (04:17)
[2017-11-01] MEDS: FUROSEMIDE 10 MG/ML 4 ML VIAL IV SCH (06:09)
[2017-11-01] MEDS: IPRATROPIUM-ALBUTEROL 3 ML NEB INHALATION SCH ×4 (08:32→21:13)
[2017-11-01] MEDS: BUDESONIDE 0.5 MG/2 ML NEBU INHALATION SCH ×2 (08:32→21:13)
[2017-11-01 09:05] LABS: Basophils # (A) 0.1 k/uL (0-0.2); Basophils % (A) 1 %; Eosinophils # (A) 0.2 k/uL (0-0.7); Eosinophils % (A) 2 %; HCT 45.7 % (39.0-53.0); HGB 14.1 gm/dL (13.0-17.5); Hypochromasia Moderate; Lymphocytes # (A) 1.1 k/uL (1.0-4.8); Lymphocytes % (A) 10 %; MCH 30.3 pg (25.0-35.0); MCHC 30.9 g/dL (31.0-37.0); Macrocytosis Slight; Mean Platelet Volume 8.1; Monocytes # (A) 0.6 k/uL (0-1.0); Monocytes % (A) 6 %; Neutrophils # (A) 8.6 k/uL (1.3-7.7); Neutrophils % (A) 80 %; Platelet Count 444 k/uL (150-450); RBC 4.66 m/uL (4.30-5.90); RDW 15.5 % (11.5-15.5); WBC 10.6 k/uL (3.8-10.6)
[2017-11-01 09:09] LABS: INR 2.1 (<1.2); Prothrombin Time 18.6 sec (9.0-12.0)
[2017-11-01] MEDS: NICOTINE 14MG/24HR PATCH TRANSDERM SCH (09:11)
[2017-11-01] MEDS: SACUBITRIL/VALSARTAN 24 MG-26 MG TABLET PO SCH ×2 (09:12→21:32)
[2017-11-01] MEDS: METOPROLOL TARTRATE 50 MG TAB PO SCH ×2 (09:13→21:32)
[2017-11-01 09:19] LABS: Anion Gap 12 mmol/L; Blood Urea Nitrogen 24 mg/dL (9-20); Calcium 9.5 mg/dL (8.4-10.2); Carbon Dioxide 30 mmol/L (22-30); Chloride 102 mmol/L (98-107); Glucose 108 mg/dL (74-99); Phosphorus 3.3 mg/dL (2.5-4.5); Potassium 3.9 mmol/L (3.5-5.1); Sodium 144 mmol/L (137-145)
--- NOTE | 2017-11-01 12:29 | P.PN ---
Subjective Progress Note Date: 11/01/17 Principal diagnosis: SOB Still having significant sob yuniel. with ambulation. Objective - Vital Signs Vital signs: Vital Signs Temp 98.0 F 11/01/17 09:35 Pulse 82 11/01/17 12:05 Resp 22 11/01/17 10:49 BP 115/73 11/01/17 09:35 Pulse Ox 98 11/01/17 09:35 Intake & Output 10/31/17 11/01/17 11/01/17 18:59 06:59 18:59 Output Total 1500 250 Balance -1500 -250 Weight 95.8 kg Output: Urine 1500 250 Other: Voiding Method Toilet Toilet Toilet Urinal Urinal Urinal - Exam Constitutional: No acute distress, conversant, pleasant Eyes:Anicteric sclerae, moist conjunctiva, no lid-lag, PERRLA, ENMT: Oropharynx clear, no erythema, exudates Neck: Supple, FROM, no masses, or JVD, No carotid bruits, No thyromegaly Lungs: diffuse wheezing and rhonchi, Clear to percussion, Normal respiratory effort, no accessory muscle use Cardiovascular: Heart regular in rate and rhythm, No murmurs, gallops, or rubs, 1+ peripheral edema Abdominal: Soft, Nontender, no guarding, rebound or rigidity, Normoactive bowel sounds, No hepatomegaly, No splenomegaly, No palpable mass Skin: Normal temperature, tone, texture, turgor, no induration, No subcutaneous nodules, No rash, lesions, No ulcers Extremities: No digital cyanosis, No clubbing, Pedal pulses intact and symmetrical, Radial pulses intact and symmetrical, No calf tenderness Psychiatric: Alert and oriented to person, place and time, appropriate affect, intact judgement Neuro: Muscles Strength 5/5 in all 4 extremities, Sensation to light touch grossly present throughout, Cranial nerves II-XII grossly intact, no focal sensory deficits - Labs CBC & Chem 7: 11/01/17 08:24 11/01/17 08:24 Labs: Abnormal Lab Results - Last 24 Hours (Table) 10/31/17 11/01/17 11/01/17 Range/Units 13:04 08:24 08:24 MCHC 30.9 L (31.0-37.0) g/dL Neutrophils # 8.6 H (1.3-7.7) k/uL PT 18.3 H (9.0-12.0) sec INR 2.0 H (<1.2) BUN 24 H (9-20) mg/dL Glucose 108 H (74-99) mg/dL 11/01/17 Range/Units 08:24 MCHC (31.0-37.0) g/dL Neutrophils # (1.3-7.7) k/uL PT 18.6 H (9.0-12.0) sec INR 2.1 H (<1.2) BUN (9-20) mg/dL Glucose (74-99) mg/dL Assessment and Plan Plan: (1) Acute exacerbation of CHF (congestive heart failure)/HX of non-ischemic cardiomyopathy S/P AICD placement: Most recent ECHOcardiogram from 2015 LVEF of 20-25%, repeat pending Increase IV Lasix to 60 mg bid continue with entresto, digoxin and metoprolol. cardiac monitoring strict I/Os, daily weights Fluid restriction to 2 L daily Cardiology following Awaiting echo report Recheck BNP Repeat CXR (2) Acute exacerbation of COPD (chronic obstructive pulmonary disease): Duonebs Start solumedrol 40mg IV q8hrs (2) Chronic afib, with valvular heart disease, on coumadin, Essential HTN ( hypertension), Hyperlipemia Controlled continue home meds (5) DVT prophylaxis on coumadin for afib--INR therapeutic (6) Smoking 1/2 pack a day or less Counseled to quit smoking
--- NOTE | 2017-11-01 13:28 | P.PN ---
Subjective Progress Note Date: 11/01/17 Mr. Ingram is a pleasant 82-year-old male past medical history significant for non-ischemic cardiomyopathy status post AICD placement, chronic persistent atrial fibrillation on terminal gauger anticoagulation with coumadin, hypertension, COPD and chronic tobacco use. He sees Dr. Beckett in the office. We have been asked to see him in consultation for increasing shortness of breath. He states he chronically has shortness of breath first thing in the morning upon waking up and getting around but over the past few days this has been much worse. It typically resolves within 5 minutes and now is persisting much longer. He also has noticed increased swelling of his lower extremities and weight gain. HEENT denies PND or orthopnea. He denies associated chest pain, dizziness, palpitations, nausea or vomiting. EKG on arrival reveals atrial fibrillation with controlled ventricular response rate of 65 with left bundle branch pattern. This is consistent with old EKG. Chest xray findings consistent with mild/moderate interstitial pulmonary edema. Laboratory data reviewed, WBC 11.4, hemoglobin 13.7, platelets 424, INR 1.9, potassium 4.1, magnesium 2.1, creatinine 0.89, proBNP 4170, cardiac enzymes negative 1, digoxin level 0.6, TSH 2.07. Current cardiac medications include Coumadin, simvastatin 10 mg daily, entresto twice a day, Lopressor 51 g twice a day, Lasix 40 mg twice a day and digoxin 250 g daily. Most recent echocardiogram was performed in the office March 2017 reveals decreased left ventricular systolic function with ejection fraction 35% with mild mitral regurg and moderate aortic regurgitation. 10/31/2017 Mr. Ingram continues to complain of shortness of breath. He states this morning after eating breakfast he became acutely dyspneic. Denies chest pain, palpitations, nausea, diaphoresis or vomiting. Negative fluid balance yesterday of 970ml with no changes in weight. He continues to have lower extremity edema. Last night he had an episode of non-sustained VT on telemetry. He was symptomatic at the time, AICD did not fire. Creatinine 1.0, potassium 4.5, magnesium 2.1. 11/01/2017 He is seen and examined today sitting up in bed with at the bedside. He continues to complain of exertional shortenss of breath. He states this morning when this occurred he asked for a breathing treatment and felt his breathing greatly improved. He had another episode of non-sustained VT, 12 beats. He was asymptomatic at the time and unaware this was occurring. He continues with ongoing lower extremity edema with mild improvement from previous exam. IV lasix has been increased per primary. Objective - Vital Signs Vital signs: Vital Signs Temp 98.0 F 11/01/17 09:35 Pulse 82 11/01/17 12:05 Resp 22 11/01/17 10:49 BP 115/73 11/01/17 09:35 Pulse Ox 98 11/01/17 09:35 Intake & Output 10/31/17 11/01/17 11/01/17 18:59 06:59 18:59 Output Total 1500 250 Balance -1500 -250 Weight 95.8 kg Output: Urine 1500 250 Other: Voiding Method Toilet Toilet Toilet Urinal Urinal Urinal - Exam Blood pressure 115/73 heart rate 86 afebrile GENERAL: Well-appearing, well-nourished and in no acute distress. NECK: Supple without JVD or thyromegaly. LUNGS: Expiratory wheezes throughout. Mild bibasilar rales. Scattered rhonchi throughout. Respirations equal and unlabored. HEART: Irregular rate and rhythm with systolic ejection murmur at the base,no rubs or gallops. S1 and S2 heard. EXTREMITIES: 1+ pitting bilateral lower extremity edema with no calf tenderness and normal range of motion. Pulses intact. - Labs CBC & Chem 7: 11/01/17 08:24 11/01/17 08:24 Labs: Abnormal Lab Results - Last 24 Hours (Table) 10/31/17 11/01/17 11/01/17 Range/Units 13:04 08:24 08:24 MCHC 30.9 L (31.0-37.0) g/dL Neutrophils # 8.6 H (1.3-7.7) k/uL PT 18.3 H (9.0-12.0) sec INR 2.0 H (<1.2) BUN 24 H (9-20) mg/dL Glucose 108 H (74-99) mg/dL 11/01/17 Range/Units 08:24 MCHC (31.0-37.0) g/dL Neutrophils # (1.3-7.7) k/uL PT 18.6 H (9.0-12.0) sec INR 2.1 H (<1.2) BUN (9-20) mg/dL Glucose (74-99) mg/dL Assessment and Plan Assessment: ASSESSMENT 1. Acute on chronic systolic heart failure 2. Chronic persistent atrial fibrillation on long-term anticoagulation with controlled ventricular response 3. Hypertension 4. Dyslipidemia 5. COPD 6. Chronic tobacco abuse 7. Non-sustained VT with AICD in place PLAN Repeat chest xray to evaluate for possible infiltrate. He has diuresed well on IV lasix and is down 2kg in weight with a negative fluid balance. May transition to oral lasix tomorrow. Continue entresto, metoprolol, digoxin and atorvastatin as previously ordered. Consider this possibly more related to pulmonary exacerbation with significant history of COPD and ongoing tobacco use. We will see Mr. Ingram as needed for the remainder of this admission, please feel free to call with questions of concerns. Nurse Practitioner note has been reviewed, I agree with a documented findings and plan of care. Patient was seen and examined.
--- NOTE | 2017-11-01 14:35 | ECHOF ---
Referral Reason:Heart Failure MEASUREMENTS -------- HEIGHT: 182.9 cm WEIGHT: 96.6 kg BP: 139/75 RVIDd: 4.5 cm (< 3.3) IVSd: 1.3 cm (0.6 - 1.1) LVIDd: 6.0 cm (3.9 - 5.3) LVPWd: 1.5 cm (0.6 - 1.1) IVSs: 1.4 cm LVIDs: 5.2 cm LVPWs: 0.9 cm LAESV Index (A-L): 45.18 ml/m Ao Diam: 3.8 cm (2.0 - 3.7) AV Cusp: 1.5 cm (1.5 - 2.6) LA Diam: 4.2 cm (2.7 - 3.8) MV EXCURSION: 18.807 mm (> 18.000) MV EF SLOPE: 147 mm/s (70 - 150) EPSS: 3.7 cm MV E Hero: 0.84 m/s MV DecT: 280 ms MV A Hero: 0.49 m/s MV E/A Ratio: 1.70 AV maxP.92 mmHg AV meanP.85 mmHg AR PHT: 693 ms RAP: 5.00 mmHg RVSP: 30.43 mmHg FINDINGS -------- Sinus rhythm with extra systolic beats. AICD This was a technically good study. The left ventricle is mildly dilated. There is mild concentric left ventricular hypertrophy. Ther e is severe global hypokinesis of LV . Overall left ventricular systolic function is severely impai red with, an EF between 20 - 25 %. The right ventricle is normal in size and function. LA is severely dilated >40 ml/m2 The right atrium is normal in size. Aortic valve is trileaflet and is moderately thickened. There is moderate aortic regurgitation. T here is mild aortic stenosis present. Peak/mean gradient across the Aortic Valve is 14.92mmHg / 8.8 5mmHg. The mitral valve leaflets are mildly thickened. Mild mitral annular calcification present. Modera te mitral regurgitation is present. Moderate tricuspid regurgitation present. The right ventricular systolic pressure, as measured by D oppler, is 30.43mmHg. Pulmonic valve appears structurally normal. The aortic root size is normal. The pericardium is normal. CONCLUSIONS -------- 1. Sinus rhythm with extra systolic beats. 2. AICD 3. This was a technically good study. 4. The left ventricle is mildly dilated. 5. There is mild concentric left ventricular hypertrophy. 6. There is severe global hypokinesis of LV . 7. Overall left ventricular systolic function is severely impaired with, an EF between 20 - 25 %. 8. The right ventricle is normal in size and function. 9. LA is severely dilated >40 ml/m2 10. The right atrium is normal in size. 11. Aortic valve is trileaflet and is moderately thickened. 12. There is moderate aortic regurgitation. 13. There is mild aortic stenosis present. 14. Peak/mean gradient across the Aortic Valve is 14.92mmHg / 8.85mmHg. 15. The mitral valve leaflets are mildly thickened. 16. Mild mitral annular calcification present. 17. Moderate mitral regurgitation is present. 18. Moderate tricuspid regurgitation present. 19. The right ventricular systolic pressure, as measured by Doppler, is 30.43mmHg. 20. Pulmonic valve appears structurally normal. 21. The aortic root size is normal. 22. The pericardium is normal. WOOD GRAINER: Lupe Smith RDCS
--- NOTE | 2017-11-01 14:47 | XR ---
EXAMINATION TYPE: XR chest 2V DATE OF EXAM: 11/01/2017 COMPARISON: NONE HISTORY: Shortness of breath TECHNIQUE: Frontal and lateral views of the chest are obtained. FINDINGS: Scattered senescent parenchymal changes noted. Hyperinflation compatible with COPD. Patchy density right lower lobe may reflect underlying infiltrate. Heart size is stable. Mediastinal structures are stable and grossly unremarkable. No evidence for hilar prominence. Degenerative changes dorsal spine. IMPRESSION: 1. Patchy density right lower lobe may reflect underlying infiltrate.
[2017-11-01] MEDS: WARFARIN 7.5 MG TAB PO SCH (17:00)
[2017-11-01] MEDS: methylPREDNISolone SOD SUCCI 40 MG/ML 1 ML VIAL IV SCH (17:01)
[2017-11-01 20:15] LABS: Glucose,Whole Blood 153 mg/dL (75-99)
[2017-11-01] MEDS ORDERED: FUROSEMIDE 10 MG/ML 10 ML VIAL IV SCH (21:00)
[2017-11-01] MEDS: INSULIN ASPART 100 UNIT/ML 1 ML 10 ML VIAL SQ SCH (21:31)
[2017-11-01] MEDS: ATORVASTATIN 10 MG TAB PO SCH (21:32)
[2017-11-01] MEDS: DIGOXIN 250 MCG TAB PO SCH (21:39)
[2017-11-02] MEDS: methylPREDNISolone SOD SUCCI 40 MG/ML 1 ML VIAL IV SCH ×3 (00:37→16:35)
[2017-11-02 01:02] LABS: Hemoglobin A1C 5.8 % (4.0-6.0)
[2017-11-02] MEDS: IPRATROPIUM-ALBUTEROL 3 ML NEB INHALATION PRN (04:54)
[2017-11-02] MEDS: BUDESONIDE 0.5 MG/2 ML NEBU INHALATION SCH ×2 (07:07→19:12)
[2017-11-02] MEDS: IPRATROPIUM-ALBUTEROL 3 ML NEB INHALATION SCH ×4 (07:07→19:14)
[2017-11-02 07:37] LABS: Glucose,Whole Blood 123 mg/dL (75-99)
[2017-11-02 07:55] LABS: Anion Gap 10 mmol/L; Blood Urea Nitrogen 28 mg/dL (9-20); Calcium 9.4 mg/dL (8.4-10.2); Carbon Dioxide 31 mmol/L (22-30); Chloride 102 mmol/L (98-107); Glucose 128 mg/dL (74-99); Magnesium 2.2 mg/dL (1.6-2.3); Phosphorus 3.9 mg/dL (2.5-4.5); Potassium 4.5 mmol/L (3.5-5.1); Sodium 143 mmol/L (137-145)
[2017-11-02 08:10] LABS: INR 1.9 (<1.2)
[2017-11-02 08:12] LABS: Prothrombin Time 17.1 sec (9.0-12.0)
[2017-11-02] MEDS: INSULIN ASPART 100 UNIT/ML 1 ML 10 ML VIAL SQ SCH ×4 (08:49→21:32)
[2017-11-02] MEDS: NICOTINE 14MG/24HR PATCH TRANSDERM SCH (08:52)
[2017-11-02] MEDS: METOPROLOL TARTRATE 50 MG TAB PO SCH ×2 (08:54→21:32)
[2017-11-02] MEDS: FUROSEMIDE 40 MG TAB PO SCH ×2 (08:54→16:35)
[2017-11-02] MEDS: SACUBITRIL/VALSARTAN 24 MG-26 MG TABLET PO SCH ×2 (08:55→21:32)
[2017-11-02 11:21] LABS: Glucose,Whole Blood 163 mg/dL (75-99)
[2017-11-02] MEDS: LEVOFLOXACIN 750 MG TAB PO SCH (12:06)
--- NOTE | 2017-11-02 12:24 | P.PN ---
Subjective Progress Note Date: 11/02/17 Principal diagnosis: SOB Patient is feeling better today, he was able to walk with physical therapy this morning without significant shortness of breath or hypoxia. Objective - Vital Signs Vital signs: Vital Signs Temp 97.4 F L 11/02/17 09:02 Pulse 80 11/02/17 10:11 Resp 22 11/02/17 10:27 BP 111/71 11/02/17 07:55 Pulse Ox 92 L 11/02/17 10:27 Intake & Output 11/01/17 11/02/17 11/02/17 18:59 06:59 18:59 Intake Total 730 Output Total 1650 420 Balance -920 -420 Weight 94 kg Intake: Oral 730 Output: Urine 1650 420 Other: Voiding Method Toilet Toilet Urinal Urinal Urinal # Voids 800 - Exam Constitutional: No acute distress, conversant, pleasant Eyes:Anicteric sclerae, moist conjunctiva, no lid-lag, PERRLA, ENMT: Oropharynx clear, no erythema, exudates Neck: Supple, FROM, no masses, or JVD, No carotid bruits, No thyromegaly Lungs: diffuse wheezing and rhonchi, Clear to percussion, Normal respiratory effort, no accessory muscle use Cardiovascular: Heart regular in rate and rhythm, No murmurs, gallops, or rubs, 1+ peripheral edema Abdominal: Soft, Nontender, no guarding, rebound or rigidity, Normoactive bowel sounds, No hepatomegaly, No splenomegaly, No palpable mass Skin: Normal temperature, tone, texture, turgor, no induration, No subcutaneous nodules, No rash, lesions, No ulcers Extremities: No digital cyanosis, No clubbing, Pedal pulses intact and symmetrical, Radial pulses intact and symmetrical, No calf tenderness Psychiatric: Alert and oriented to person, place and time, appropriate affect, intact judgement Neuro: Muscles Strength 5/5 in all 4 extremities, Sensation to light touch grossly present throughout, Cranial nerves II-XII grossly intact, no focal sensory deficits - Labs CBC & Chem 7: 11/01/17 08:24 11/02/17 07:18 Labs: Abnormal Lab Results - Last 24 Hours (Table) 11/01/17 11/02/17 11/02/17 Range/Units 20:12 07:03 07:18 PT 17.1 H (9.0-12.0) sec INR 1.9 H (<1.2) Carbon Dioxide (22-30) mmol/L BUN (9-20) mg/dL Glucose (74-99) mg/dL POC Glucose (mg/dL) 153 H 123 H (75-99) mg/dL 11/02/17 11/02/17 Range/Units 07:18 11:18 PT (9.0-12.0) sec INR (<1.2) Carbon Dioxide 31 H (22-30) mmol/L BUN 28 H (9-20) mg/dL Glucose 128 H (74-99) mg/dL POC Glucose (mg/dL) 163 H (75-99) mg/dL Assessment and Plan Plan: (1) Acute exacerbation of CHF (congestive heart failure)/HX of non-ischemic cardiomyopathy S/P AICD placement: Lasix switched to by mouth by cardio Continue with entresto, digoxin and metoprolol. Cardiac monitoring strict I/Os, daily weights Fluid restriction to 2 L daily Cardiology following Echo report reviewed, ejection fraction 20-25% same as last EF recorded, moderate mitral and aortic valve regurgitation BNP improving (2) Acute exacerbation of COPD (chronic obstructive pulmonary disease)/acute community-acquired pneumonia: Duonebs Continue solumedrol 40mg IV q8hrs Add Levaquin 750 mg daily (2) Chronic afib, with valvular heart disease, on coumadin, Essential HTN ( hypertension), Hyperlipemia Controlled continue home meds (5) DVT prophylaxis on coumadin for afib--INR therapeutic (6) Smoking 1/2 pack a day or less Counseled to quit smoking
[2017-11-02 17:34] LABS: Glucose,Whole Blood 108 mg/dL (75-99)
[2017-11-02] MEDS ORDERED: WARFARIN 7.5 MG TAB PO SCH (18:00)
[2017-11-02 19:59] LABS: Glucose,Whole Blood 165 mg/dL (75-99)
[2017-11-02] MEDS: ATORVASTATIN 10 MG TAB PO SCH (21:32)
[2017-11-02] MEDS: DIGOXIN 250 MCG TAB PO SCH (21:32)
[2017-11-03] MEDS: methylPREDNISolone SOD SUCCI 40 MG/ML 1 ML VIAL IV SCH ×2 (00:22→08:32)
[2017-11-03 07:08] LABS: Glucose,Whole Blood 125 mg/dL (75-99)
[2017-11-03] MEDS: INSULIN ASPART 100 UNIT/ML 1 ML 10 ML VIAL SQ SCH ×2 (07:30→12:35)
[2017-11-03 07:33] LABS: Basophils % (A) 0 %; Eosinophils % (A) 0 %; HCT 43.8 % (39.0-53.0); HGB 13.7 gm/dL (13.0-17.5); Hypochromasia Slight; Lymphocytes # (A) 0.5 k/uL (1.0-4.8); Lymphocytes % (A) 3 %; MCH 30.2 pg (25.0-35.0); MCHC 31.2 g/dL (31.0-37.0); MCV 96.7 fL (80.0-100.0); Mean Platelet Volume 7.6; Monocytes # (A) 0.7 k/uL (0-1.0); Monocytes % (A) 4 %; Neutrophils # (A) 14.3 k/uL (1.3-7.7); Neutrophils % (A) 91 %; Platelet Count 427 k/uL (150-450); RBC 4.53 m/uL (4.30-5.90); RDW 14.2 % (11.5-15.5); WBC 15.6 k/uL (3.8-10.6)
[2017-11-03 07:47] VITALS: BP 124/67; RESP 20; TEMP 97.8
[2017-11-03 07:48] LABS: Prothrombin Time 18.5 sec (9.0-12.0)
[2017-11-03 08:00] LABS: Anion Gap 12 mmol/L; Blood Urea Nitrogen 35 mg/dL (9-20); Calcium 9.4 mg/dL (8.4-10.2); Carbon Dioxide 29 mmol/L (22-30); Chloride 101 mmol/L (98-107); Glucose 131 mg/dL (74-99); Magnesium 2.2 mg/dL (1.6-2.3); Phosphorus 4.1 mg/dL (2.5-4.5); Potassium 4.3 mmol/L (3.5-5.1); Sodium 142 mmol/L (137-145)
[2017-11-03] MEDS: FUROSEMIDE 40 MG TAB PO SCH (08:32)
[2017-11-03] MEDS: LEVOFLOXACIN 750 MG TAB PO SCH (08:32)
[2017-11-03] MEDS: METOPROLOL TARTRATE 50 MG TAB PO SCH (08:32)
[2017-11-03] MEDS: NICOTINE 14MG/24HR PATCH TRANSDERM SCH (08:32)
[2017-11-03] MEDS: SACUBITRIL/VALSARTAN 24 MG-26 MG TABLET PO SCH (08:33)
[2017-11-03] MEDS: BUDESONIDE 0.5 MG/2 ML NEBU INHALATION SCH (08:51)
[2017-11-03] MEDS: IPRATROPIUM-ALBUTEROL 3 ML NEB INHALATION SCH ×3 (08:51→16:30)
[2017-11-03 11:55] LABS: Glucose,Whole Blood 140 mg/dL (75-99)
[2017-11-03 12:42] VITALS: PULSE 84
--- NOTE | 2017-11-03 14:50 | P.DS ---
Providers Date of admission: 10/29/17 19:00 Expected date of discharge: 11/03/17 Attending physician: Cece Sarmiento DO Consults: 10/29/17 21:15 Consult Physician Routine Consulting Provider: Jose Juan Beckett Consult Reason/Comments: CHF exacerbation` Do you want consulting provider notified?: Yes Primary care physician: Anusha Sommers MD Hospital Course: 82 year old male with history of nonischemic cardiomyopathy with EF at baseline is 20-25%, hx of afib on coumadin presented to the ER because of progressive increase in his weight, swelling of his legs along with progressively worsening of shortness of breath (exertional) over 2 weeks. Initially he doubled up on his lasix dose without any noticeable benefit. He also reported orthopnea and PND. His activity level was limited due to exertional dyspnea. He was also having some cough, however; denied any chest pain, fever, chills, sick contacts , sputum production. In the ER his vital signs were all within normal limits. Laboratory findings revealed elevated proBNP at 4100. His troponin was within normal limits, he did not have any leukocytosis and on exam he was not febrile. His chest x-ray revealed significant pulmonary vascular congestion. He was diagnosed with acute exacerbation of chronic systolic congestive heart failure, admitted to the hospital for IV diuresis. He was started on Lasix 40 mg IV twice a day. He was seen by cardiology. He had a repeat echocardiogram that showed persistently low EF at 20-25% as well as moderate mitral and aortic valve regurgitation. Because of persistent shortness of breath he had a follow-up chest x-ray a few days after admission and that revealed possible right lower lobe density consistent with pneumonia. Because of that he was started on Levaquin. Because of history of COPD and wheezing on exam he was also treated with DuoNeb' s as well as steroids. Patient was not hypoxic throughout the hospitalization, he did not require oxygen upon discharge. He was instructed to follow-up with his primary care physician as well as his cota and lung specialist as soon as possible after discharge. He'll be discharged home in a stable condition on Medrol Dosepak, Levaquin as well as DuoNeb. Patient stated that his nebulizer machine and requested a new one, I discussed that with the care management who will arrange for the patient to have a new device. Time for discharge 35 min. Patient Condition at Discharge: Fair Plan - Discharge Summary Discharge Rx Participant: No New Discharge Prescriptions: New Ipratropium-Albuterol Nebulize [Duoneb 0.5 mg-3 mg/3 ml Soln] 3 ml INHALATION RT-QID 60 Days #120 ampul.neb Levofloxacin [Levaquin] 750 mg PO DAILY 7 Days #7 tab methylPREDNISolone [Medrol Dose Pack] 4 mg PO DIRECTED 7 Days #1 pack Nicotine 14Mg/24Hr Patch [Habitrol] 1 patch TRANSDERM DAILY 30 Days #30 patch Continue Budesonide [Pulmicort] 0.5 mg INHALATION RT-BID Simvastatin [Zocor] 10 mg PO DAILY Metoprolol Tartrate [Lopressor] 50 mg PO BID Furosemide [Lasix] 40 mg PO BID Digoxin [Lanoxin] 250 mcg PO HS Warfarin [Coumadin] 7.5 mg PO SUFR Warfarin [Coumadin] 3.75 mg PO MOTUWETHSA Sacubitril/Valsartan [Entresto 24 mg-26 mg Tablet] 1 tab PO BID No Action Albuterol Inhaler [Ventolin Hfa Inhaler] 2 puff INHALATION RT-Q6H PRN PRN Reason: Shortness Of Breath Discharge Medication List Albuterol Inhaler [Ventolin Hfa Inhaler] 2 puff INHALATION RT-Q6H PRN 11/16/14 [ History] Budesonide [Pulmicort] 0.5 mg INHALATION RT-BID 11/16/14 [History] Digoxin [Lanoxin] 250 mcg PO HS 11/16/14 [History] Furosemide [Lasix] 40 mg PO BID 11/16/14 [History] Metoprolol Tartrate [Lopressor] 50 mg PO BID 11/16/14 [History] Simvastatin [Zocor] 10 mg PO DAILY 11/16/14 [History] Warfarin [Coumadin] 3.75 mg PO MOTUWETHSA 05/23/16 [History] Warfarin [Coumadin] 7.5 mg PO SUFR 05/23/16 [History] Sacubitril/Valsartan [Entresto 24 mg-26 mg Tablet] 1 tab PO BID 10/29/17 [ History] Ipratropium-Albuterol Nebulize [Duoneb 0.5 mg-3 mg/3 ml Soln] 3 ml INHALATION RT -QID 60 Days #120 ampul.neb 11/03/17 [Rx] Levofloxacin [Levaquin] 750 mg PO DAILY 7 Days #7 tab 11/03/17 [Rx] Nicotine 14Mg/24Hr Patch [Habitrol] 1 patch TRANSDERM DAILY 30 Days #30 patch [Rx] methylPREDNISolone [Medrol Dose Pack] 4 mg PO DIRECTED 7 Days #1 pack [Rx] Follow up Appointment(s)/Referral(s): Anusha Sommers MD [Primary Care Provider] - 1-2 days (Patient to call Dr. Sommers's office Sunday to schedule follow up appointment. The office is closed at time of discharge. ) Patient Instructions/Handouts: Nicotine (Absorbed through the skin), Methylprednisolone (By mouth), Levofloxacin (By mouth), Ipratropium/Albuterol ( By breathing), Heart Failure (DC), Cigarette Smoking and Your Health (GEN), Dyspnea (GEN)
== END 2017-11-03 16:38 | disposition home or self-care (01) | DRG 291 ==
LOC: EC 16:23 → 5MS5E 19:00
PROVIDERS: ADMIT Internal Medicine; ATTEND Internal Medicine
DX: I11.0 Hypertensive heart disease with heart failure (principal); J18.9 Pneumonia, unspecified organism; I47.2 Ventricular tachycardia; I48.1 Persistent atrial fibrillation; J44.1 Chronic obstructive pulmonary disease with (acute) exacerbation; J44.0 Chronic obstructive pulmonary disease with (acute) lower respiratory infection; I42.9 Cardiomyopathy, unspecified; I50.23 Acute on chronic systolic (congestive) heart failure; I08.0 Rheumatic disorders of both mitral and aortic valves; E78.5 Hyperlipidemia, unspecified; H26.9 Unspecified cataract; F17.210 Nicotine dependence, cigarettes, uncomplicated; M19.91 Primary osteoarthritis, unspecified site; R19.7 Diarrhea, unspecified; Z79.51 Long term (current) use of inhaled steroids; Z79.01 Long term (current) use of anticoagulants; Z79.899 Other long term (current) drug therapy; Z85.828 Personal history of other malignant neoplasm of skin; Z98.42 Cataract extraction status, left eye; Z95.810 Presence of automatic (implantable) cardiac defibrillator
CPT/HCPCS: 36415; 71046; 74018; 80048; 80053; 80162; 82550; 82553; 83036; 83735; 83880; 84100; 84443; 84484; 85025; 85610; 85730; 93005; 93306; 94640; 94760; 96374; 99285

== ENCOUNTER 2019-03-15 14:00 | Inpatient (IN) | payer MEDICARE ==
[2019-03-15] MEDS ORDERED: IPRATROPIUM 0.5 MG/2.5 ML NEBU INHALATION STA (14:25)
[2019-03-15] MEDS ORDERED: methylPREDNISolone SOD SUCCI 125 MG/2 ML VIAL IV STA (14:25)
[2019-03-15] MEDS ORDERED: ALBUTEROL NEBULIZED 2.5 MG/3 ML INHALATION STA (14:25)
--- NOTE | 2019-03-15 14:45 | ED ---
General Adult HPI - General Chief complaint: Shortness of Breath Stated complaint: PASHA Time Seen by Provider: 03/15/19 14:00 Source: patient, RN notes reviewed Mode of arrival: wheelchair Limitations: no limitations - History of Present Illness Initial comments: This is an 84-year-old male with past medical history significant for COPD. Patient comes in today complaining of difficulty breathing. Patient states it started about 5 days ago. Patient states she's had occasional cough but no real sputum production. Patient denies any chest pain or palpitations. Patient denies any leg swelling or calf tenderness. Patient denies any recent fever ch ills. Patient denies any headache patient denies numbness weakness. Patient denies lightheadedness dizziness or near syncopal episode. Patient denies any abdominal pain. - Related Data Home Medications Medication Instructions Recorded Confirmed Albuterol Inhaler [Ventolin Hfa 2 puff INHALATION RT-Q6H PRN 11/16/14 03/15/19 Inhaler] Budesonide [Pulmicort] 0.5 mg INHALATION RT-BID 11/16/14 03/15/19 Digoxin [Lanoxin] 250 mcg PO HS 11/16/14 03/15/19 Furosemide [Lasix] 40 mg PO BID 11/16/14 03/15/19 Metoprolol Tartrate [Lopressor] 50 mg PO BID 11/16/14 03/15/19 Simvastatin [Zocor] 10 mg PO DAILY 11/16/14 03/15/19 Warfarin [Coumadin] 3.75 mg PO MOTUWETHSA 05/23/16 03/15/19 Warfarin [Coumadin] 7.5 mg PO SUFR 05/23/16 03/15/19 Sacubitril/Valsartan [Entresto 49 1 tab PO BID 03/15/19 03/15/19 mg-51 mg Tablet] Spironolactone [Aldactone] 25 mg PO DAILY 03/15/19 03/15/19 Allergies Allergy/AdvReac Type Severity Reaction Status Date / Time No Known Allergies Allergy Verified 03/15/19 14:43 Review of Systems ROS Statement: Those systems with pertinent positive or pertinent negative responses have been documented in the HPI. ROS Other: All systems not noted in ROS Statement are negative. Past Medical History Past Medical History: Atrial Fibrillation, Asthma, Cancer, COPD, Hypertension Additional Past Medical History / Comment(s): SKIN CANCER, ARTHRITIS, ENLARGED HEART, RT CATARACT.HAD A PNE VACCINE BUT NOT SURE OF DATE. History of Any Multi-Drug Resistant Organisms: None Reported Past Surgical History: Heart Catheterization, Tonsillectomy Additional Past Surgical History / Comment(s): cataract surgery LT EYE. SKIN CA,, AICD Past Anesthesia/Blood Transfusion Reactions: No Reported Reaction Past Psychological History: No Psychological Hx Reported Smoking Status: Current every day smoker Past Alcohol Use History: Occasional Past Drug Use History: None Reported - Past Family History Father Family Medical History: No Reported History Additional Family Medical History / Comment(s): LIVED TO BE IN HIS MID 90'S - FROM OLD AGE Mother Family Medical History: No Reported History Additional Family Medical History / Comment(s): LIVED TO BE IN HER MID 90'S FROM OLD AGE General Exam - General Exam Comments Initial Comments: GENERAL: Patient is well-developed and well-nourished. Patient is nontoxic and well- hydrated and is in mild distress. ENT: Neck is soft and supple. No significant lymphadenopathy is noted. Oropharynx is clear. Moist mucous membranes. Neck has full range of motion without eliciting any pain. EYES: The sclera were anicteric and conjunctiva were pink and moist. Extraocular movements were intact and pupils were equal round and reactive to light. Eyelids were unremarkable. PULMONARY: Patient has diffuse wheezing CARDIOVASCULAR: There is a regular rate and rhythm without any murmurs gallops or rubs. ABDOMEN: Soft and nontender with normal bowel sounds. No palpable organomegaly was noted. There is no palpable pulsatile mass. SKIN: Skin is clear with no lesions or rashes and otherwise unremarkable. NEUROLOGIC: Patient is alert and oriented x3. Cranial nerves II through XII are grossly intact. Motor and sensory are also intact. Normal speech, volume and content. Symmetrical smile. MUSCULOSKELETAL: Normal extremities with adequate strength and full range of motion. No lower extremity swelling or edema. No calf tenderness. LYMPHATICS: No significant lymphadenopathy is noted PSYCHIATRIC: Normal psychiatric evaluation. Limitations: no limitations Course Vital Signs 03/15/19 03/15/19 03/15/19 14:00 14:07 14:32 Temperature 98.7 F Pulse Rate 91 89 Respiratory 30 H 25 H 30 H Rate Blood Pressure 99/58 93/72 O2 Sat by Pulse 87 L 90 L Oximetry 03/15/19 03/15/19 15:08 15:23 Temperature Pulse Rate 80 95 Respiratory 18 18 Rate Blood Pressure O2 Sat by Pulse Oximetry Medical Decision Making - Medical Decision Making EKG shows atrial fibrillation with occasional PVC at a rate of 91 bpm QRS 150 QTC is 412 QTC is 506. Patient's EKG shows no ST segment elevation. Chest x-ray shows left lower lobe infiltrate. Patient got Rocephin 2 g in the emergency department. Patient also received albuterol 2 treatments and Solu-Medrol for his wheezing. I spoke with him for this and he agreed to admit the patient admitted the patient wrote admitting orders. - Lab Data Result diagrams: 03/15/19 14:50 Lab Results 03/15/19 03/15/19 03/15/19 Range/Units 14:50 14:50 14:50 WBC 15.8 H (3.8-10.6) k/uL RBC 4.24 L (4.30-5.90) m/uL Hgb 13.2 (13.0-17.5) gm/dL Hct 41.3 (39.0-53.0) % MCV 97.3 (80.0-100.0) fL MCH 31.3 (25.0-35.0) pg MCHC 32.1 (31.0-37.0) g/dL RDW 13.2 (11.5-15.5) % Plt Count 511 H (150-450) k/uL Neutrophils % 84 % Lymphocytes % 8 % Monocytes % 7 % Eosinophils % 0 % Basophils % 0 % Neutrophils # 13.3 H (1.3-7.7) k/uL Lymphocytes # 1.2 (1.0-4.8) k/uL Monocytes # 1.1 H (0-1.0) k/uL Eosinophils # 0.0 (0-0.7) k/uL Basophils # 0.0 (0-0.2) k/uL PT 41.4 H (9.0-12.0) sec INR 4.3 H (<1.2) APTT 44.2 H (22.0-30.0) sec NT-Pro-B Natriuret Pep 1950 pg/mL Disposition Clinical Impression: Pneumonia, COPD exacerbation Disposition: ADMITTED IP TO THIS HOSP Referrals: Anusha Sommers MD [Primary Care Provider] - 1-2 days Time of Disposition: 16:06
[2019-03-15 15:16] LABS: Basophils % (A) 0 %; Eosinophils % (A) 0 %; HCT 41.3 % (39.0-53.0); HGB 13.2 gm/dL (13.0-17.5); Lymphocytes # (A) 1.2 k/uL (1.0-4.8); Lymphocytes % (A) 8 %; MCH 31.3 pg (25.0-35.0); MCHC 32.1 g/dL (31.0-37.0); MCV 97.3 fL (80.0-100.0); Mean Platelet Volume 7.4; Monocytes # (A) 1.1 k/uL (0-1.0); Monocytes % (A) 7 %; Neutrophils # (A) 13.3 k/uL (1.3-7.7); Neutrophils % (A) 84 %; Platelet Count 511 k/uL (150-450); RBC 4.24 m/uL (4.30-5.90); RDW 13.2 % (11.5-15.5); WBC 15.8 k/uL (3.8-10.6)
[2019-03-15 15:26] LABS: INR 4.3 (<1.2); Partial Thromboplastin Time 44.2 sec (22.0-30.0); Prothrombin Time 41.4 sec (9.0-12.0)
--- NOTE | 2019-03-15 15:46 | XR ---
EXAMINATION TYPE: XR chest 2V DATE OF EXAM: 03/15/2019 COMPARISON: NONE HISTORY: Difficulty breathing TECHNIQUE: Frontal and lateral views of the chest are obtained. FINDINGS: Heart appears normal. Lungs are clear of consolidation. There is a left axillary pacemaker . There are chest leads. There is coarsening of the lung markings. There is some infiltrate in the le ft lower lobe posteriorly. IMPRESSION: There is left lower lobe pneumonia increased compared to last exam. Pulmonary fibrosis. No heart failure.
[2019-03-15] MEDS ORDERED: PNEUMONIA PROTOCOL UTILIZED 1 EACH MISC PO PRN (16:06)
[2019-03-15] MEDS ORDERED: AZITHROMYCIN 500 MG in SODIUM CHLORIDE 0.9% 250 ML IVPB STA (16:12)
[2019-03-15 16:13] LABS: Albumin 3.7 g/dL (3.5-5.0); Calcium 8.9 mg/dL (8.4-10.2); Magnesium 2.6 mg/dL (1.6-2.3); Potassium 4.2 mmol/L (3.5-5.1); Total Bilirubin 1.3 mg/dL (0.2-1.3); Total Protein 6.4 g/dL (6.3-8.2)
[2019-03-15] MEDS: methylPREDNISolone SOD SUCCI 125 MG/2 ML VIAL IV SCH ×2 (17:02→23:23)
[2019-03-15] MEDS ORDERED: NALOXONE 0.4 MG/ML 1 ML VIAL IV PRN (17:13)
[2019-03-15] MEDS ORDERED: ONDANSETRON 4 MG/2 ML VIAL IVP PRN (17:13)
[2019-03-15] MEDS ORDERED: ALBUTEROL NEBULIZED 2.5 MG/3 ML INHALATION PRN (17:13)
[2019-03-15] MEDS ORDERED: ACETAMINOPHEN TAB 325 MG TAB PO PRN (17:13)
[2019-03-15] MEDS ORDERED: MELATONIN 3 MG TABLET PO PRN (17:13)
[2019-03-15] MEDS ORDERED: BENZOCAINE/MENTHOL LOZENG 1 EACH LOZENGE MUCOUS MEM PRN (17:18)
--- NOTE | 2019-03-15 17:20 | P.HPIM ---
History of Present Illness H&P Date: 03/15/19 Chief Complaint: shortness of breath Patient is an 84-year-old male past medical history of systolic congestive heart failure with ejection fraction 20-25%, atrial fibrillation on Coumadin therapy, hypertension, and COPD presented to the ER with shortness of breath. In the ER he underwent an extensive evaluation. On initial vital signs his found have a respiratory rate of 30 and a room air sat of 87%. Initial laboratory analysis revealed a white blood cell count 15.8, platelets of 511, BP 132, glucose 118, and INR 4.3. Chest x-ray revealed a left lower lobe pneumonia with pulmonary fibrosis. BNP was within normal limits for age at [age]. He was diagnosed with acute exacerbation of COPD and left lower lobe pneumonia. He was started on IV fluids, Rocephin, Zithromax, and IV steroids. He is given several updrafts. Arrangements were made for admission. Patient seen and examined at bedside in the ER with his sister present. He states that 4-5 days ago he had acute change in his shortness of breath. This was associated with worsening nonproductive cough, runny nose, and intermittent sore throat. He also noted significant wheezing. He has had decreased appetite and decreased exercise tolerance. He is overall felt fatigued and not well. He denies any fevers or riders. He denies any chills. Denies any chest pain, nausea, vomiting, diarrhea, constipation, or dysuria. He has a history of cardiomyopathy with an ejection fraction of 20-25%, AICD, and follows with Dr. Abarca. He has well known exercise intolerance but this has worsened with his acute illness. He also has intermittent left hand and foot numbness which is unchanged. He also has chronic vision changes which are unchanged. He follows with Dr. Garcia for pulmonary. He states that they have told her would benefit from oxygen, but he has not been wearing it at home. Review of Systems Pertinent positives and negatives as discussed in HPI, a complete review of systems was performed and all other systems are negative. Past Medical History Past Medical History: Atrial Fibrillation, Asthma, Cancer, Heart Failure, COPD, Hyperlipidemia, Hypertension, Osteoarthritis (OA) Additional Past Medical History / Comment(s): SKIN CANCER, ARTHRITIS, ENLARGED HEART. History of Any Multi-Drug Resistant Organisms: None Reported Past Surgical History: Heart Catheterization, Tonsillectomy Additional Past Surgical History / Comment(s): cataract surgery LT EYE. SKIN CA,, AICD Past Anesthesia/Blood Transfusion Reactions: No Reported Reaction Past Psychological History: No Psychological Hx Reported Smoking Status: Current every day smoker Past Alcohol Use History: Occasional Past Drug Use History: None Reported Additional History: Lives alone, no assistive devices, independent in all ADLs. Has a nebulizer. Does not use oxygen at home. - Past Family History Father Family Medical History: No Reported History Additional Family Medical History / Comment(s): LIVED TO BE IN HIS MID 90'S - FROM OLD AGE Mother Family Medical History: No Reported History Additional Family Medical History / Comment(s): LIVED TO BE IN HER MID 90'S FROM OLD AGE Medications and Allergies Home Medications Medication Instructions Recorded Confirmed Type Albuterol Inhaler [Ventolin Hfa 2 puff INHALATION RT-Q6H PRN 11/16/14 03/15/19 History Inhaler] Budesonide [Pulmicort] 0.5 mg INHALATION RT-BID 11/16/14 03/15/19 History Digoxin [Lanoxin] 250 mcg PO HS 11/16/14 03/15/19 History Furosemide [Lasix] 40 mg PO BID 11/16/14 03/15/19 History Metoprolol Tartrate [Lopressor] 50 mg PO BID 11/16/14 03/15/19 History Simvastatin [Zocor] 10 mg PO DAILY 11/16/14 03/15/19 History Warfarin [Coumadin] 3.75 mg PO MOTUWETHSA 05/23/16 03/15/19 History Warfarin [Coumadin] 7.5 mg PO SUFR 05/23/16 03/15/19 History Sacubitril/Valsartan [Entresto 49 1 tab PO BID 03/15/19 03/15/19 History mg-51 mg Tablet] Spironolactone [Aldactone] 25 mg PO DAILY 03/15/19 03/15/19 History Allergies Allergy/AdvReac Type Severity Reaction Status Date / Time No Known Allergies Allergy Verified 03/15/19 14:43 Physical Exam Osteopathic Statement: *. No significant issues noted on an osteopathic structural exam other than those noted in the History and Physical/Consult. Vitals: Vital Signs Temp Pulse Resp BP Pulse Ox 03/15/19 16:17 98 25 H 121/73 91 L 03/15/19 15:23 95 18 03/15/19 15:08 80 18 03/15/19 14:32 89 30 H 93/72 90 L 03/15/19 14:07 98.7 F 91 25 H 99/58 87 L 03/15/19 14:00 30 H Intake and Output 03/15/19 03/15/19 03/15/19 06:59 14:59 22:59 Other: Weight 90.718 kg General: Ill appearing, mild distress, appears younger than stated age, normal w eight Derm: no unusual rashes/lesions no unusual ecchymoses, warm, dry, purple discoloration of bilateral feet, onychomycoses of all toenails Head: atraumatic, normocephalic, symmetric Eyes: EOMI, no lid lag, anicteric sclera, pupils equal round reactive to light ENT: Nose and ears atraumatic, no thrush, + pharyngeal erythema Neck: No thyromegaly, no cervical lymphadenopathy, trachea midline, supple Mouth: no lip lesion, mucus membranes dry Cardiovascular: S1 S2 tachycardic, no murmur, faint posterior tibial pulse bilateral, trace pedal edema, capillary refill less than 2 seconds Lungs: Rhonchi throughout all lung ken, accessory muscle use, 3 word conversational dyspnea Abdominal: soft, nontender to palpation, no guarding, no appreciable organomegaly, normal bowel sounds Ext: no gross muscle atrophy, muscle strength 5 out of 5 in all 4 extremities grossly, no contractures, Neuro: CN II-XI grossly intact, light touch intact all 4 extremities, finger to nose within normal limits, Psych: Alert, oriented, appropriate affect Results CBC & Chem 7: 03/15/19 14:50 03/15/19 14:50 Labs: Abnormal Lab Results - Last 24 Hours (Table) 03/15/19 03/15/19 03/15/19 Range/Units 14:50 14:50 14:50 WBC 15.8 H (3.8-10.6) k/uL RBC 4.24 L (4.30-5.90) m/uL Plt Count 511 H (150-450) k/uL Neutrophils # 13.3 H (1.3-7.7) k/uL Monocytes # 1.1 H (0-1.0) k/uL PT 41.4 H (9.0-12.0) sec INR 4.3 H (<1.2) APTT 44.2 H (22.0-30.0) sec BUN 32 H (9-20) mg/dL Glucose 118 H (74-99) mg/dL Magnesium 2.6 H (1.6-2.3) mg/dL Chest x-ray: report reviewed, image reviewed Thrombosis Risk Factor Assmnt - DVT/VTE Prophylaxis DVT/VTE Prophylaxis: Pharmacologic Prophylaxis ordered Assessment and Plan Assessment: Pneumonia with sepsis as evidenced by elevated white blood cell count and tachypnea -Rocephin, Zithromax -Limit IV fluids secondary ejection fraction 20-25% -Pulmonary hygiene -Sputum culture -Mucinex -Chest x-ray until clear Acute exacerbation of COPD -Pulmicort and formoterol -DuoNeb -When necessary albuterol -Steroid burst and taper -Check blood sugars on steroids -Pulmonary hygiene -Consult pulmonary Acute hypoxic respiratory failure -Treatment as above -Patient with signs of respiratory fatigue. If it continues will need BiPAP. Compensated systolic congestive heart failure with ejection fraction 20-25% -Limit IV fluids - Resume Lasix, aldactone in a.m. -Continue with Lopressor, and Entresto A fib with supratherapeutic coumadin coagulopathy - hold coumadin tongiht - INR in AM - tele - metoprolol, digoxin HTN, controlled - meds as outline above, follow BP HLD - statin The patient is admitted with an anticipated greater than 2 midnight stay for evaluation of PNA with sepsis. Surrogate decision-maker: Sister- Elham CODE STATUS:See ACP discussion DVT prophylaxis: Coumadin Discussed with: Patient, sister, ED physician, nursing Anticipated discharge date: 3-[address]: home A total of [65] minutes was spent on the care of this complex patient more than 50% of the time was spent in counseling and care coordination.
[2019-03-15] MEDS: INSULIN ASPART (NovoLOG) 100 UNIT/ML VIAL SQ SCH ×2 (18:09→20:16)
[2019-03-15] MEDS: IPRATROPIUM-ALBUTEROL 3 ML NEB INHALATION SCH (19:32)
[2019-03-15] MEDS: FORMOTEROL FUMARATE 20 MCG/2 ML NEBU INHALATION SCH (19:32)
[2019-03-15] MEDS: BUDESONIDE 1 MG/2 ML NEBU INHALATION SCH (19:32)
[2019-03-15] MEDS ORDERED: ALBUTEROL NEBULIZED 2.5 MG/3 ML INHALATION SCH (20:00)
[2019-03-15 20:10] LABS: Glucose,Whole Blood 255 mg/dL (75-99)
[2019-03-15] MEDS: METOPROLOL TARTRATE 50 MG TAB PO SCH (20:15)
[2019-03-15] MEDS: guaiFENesin 600 MG TABLET.ER PO SCH (20:15)
[2019-03-15] MEDS ORDERED: DIGOXIN 250 MCG TAB PO SCH (21:00)
[2019-03-16] MEDS: methylPREDNISolone SOD SUCCI 125 MG/2 ML VIAL IV SCH ×4 (05:32→23:52)
[2019-03-16 06:29] LABS: Glucose,Whole Blood 131 mg/dL (75-99)
[2019-03-16] MEDS: INSULIN ASPART (NovoLOG) 100 UNIT/ML VIAL SQ SCH ×4 (06:29→22:04)
[2019-03-16 06:39] LABS: Basophils % (A) 0 %; Eosinophils % (A) 0 %; HCT 42.8 % (39.0-53.0); Lymphocytes # (A) 0.9 k/uL (1.0-4.8); Lymphocytes % (A) 4 %; MCH 31.8 pg (25.0-35.0); MCHC 32.6 g/dL (31.0-37.0); MCV 97.6 fL (80.0-100.0); Mean Platelet Volume 7.5; Monocytes # (A) 0.9 k/uL (0-1.0); Monocytes % (A) 4 %; Neutrophils # (A) 22.1 k/uL (1.3-7.7); Neutrophils % (A) 92 %; Platelet Count 487 k/uL (150-450); RBC 4.39 m/uL (4.30-5.90); WBC 24.1 k/uL (3.8-10.6)
[2019-03-16 06:53] LABS: INR 3.7 (<1.2); Prothrombin Time 35.9 sec (9.0-12.0)
[2019-03-16 06:57] LABS: Calcium 8.8 mg/dL (8.4-10.2); Magnesium 2.8 mg/dL (1.6-2.3); Phosphorus 4.9 mg/dL (2.5-4.5); Potassium 4.5 mmol/L (3.5-5.1)
--- NOTE | 2019-03-16 07:20 | XR ---
EXAMINATION TYPE: XR chest 2V DATE OF EXAM: 03/16/2019 HISTORY: pneumonia. REFERENCE: Previous study dated 03/15/2019. FINDINGS: There is unipolar pacemaker place on the left. Left lower lobe infiltrate is largely cleared. There is some residual atelectasis or pneumonia left l hannah base. Right lung is clear. Nodular opacity of the right lung base is believed to be a nipple shad ow. There is blunting of the right CP angle. I could not exclude a small effusion. Heart size minimal ly prominent. IMPRESSION: 1. IMPROVING LEFT LOWER LOBE INFILTRATE. 2. SMALL RIGHT EFFUSION. 3. MILD CARDIOMEGALY.
[2019-03-16] MEDS: IPRATROPIUM-ALBUTEROL 3 ML NEB INHALATION SCH ×4 (07:25→19:38)
[2019-03-16] MEDS: BUDESONIDE 1 MG/2 ML NEBU INHALATION SCH ×2 (07:25→19:38)
[2019-03-16] MEDS: FORMOTEROL FUMARATE 20 MCG/2 ML NEBU INHALATION SCH ×2 (07:25→19:38)
[2019-03-16] MEDS: guaiFENesin 600 MG TABLET.ER PO SCH ×2 (08:35→20:59)
[2019-03-16] MEDS: PANTOPRAZOLE 40 MG TABLET PO SCH (08:35)
[2019-03-16] MEDS: SACUBITRIL/VALSARTAN 49 MG-51 MG TABLET PO SCH ×2 (08:35→20:59)
[2019-03-16] MEDS: AZITHROMYCIN 500 MG TAB PO SCH (08:35)
[2019-03-16] MEDS: NICOTINE 14MG/24HR PATCH TRANSDERM SCH (08:36)
[2019-03-16] MEDS: ATORVASTATIN 10 MG TAB PO SCH (08:36)
[2019-03-16] MEDS: METOPROLOL TARTRATE 50 MG TAB PO SCH ×2 (08:36→20:58)
[2019-03-16] MEDS: FUROSEMIDE 40 MG TAB PO SCH ×2 (08:36→16:08)
[2019-03-16] MEDS ORDERED: DIGOXIN 125 MCG TAB PO SCH (09:00)
[2019-03-16] MEDS ORDERED: SPIRONOLACTONE 25 MG TAB PO SCH (09:00)
[2019-03-16] MEDS ORDERED: FUROSEMIDE 10 MG/ML 4 ML VIAL IV STA (09:01)
--- NOTE | 2019-03-16 09:08 | P.PN ---
Subjective Progress Note Date: 03/16/19 Principal diagnosis: shortness of breath Patient is an 84-year-old male past medical history of systolic congestive heart failure with ejection fraction 20-25%, atrial fibrillation on Coumadin therapy, hypertension, and COPD presented to the ER with shortness of breath. In the ER he underwent an extensive evaluation. On initial vital signs his found have a respiratory rate of 30 and a room air sat of 87%. Initial laboratory analysis revealed a white blood cell count 15.8, platelets of 511, BP 132, glucose 118, and INR 4.3. Chest x-ray revealed a left lower lobe pneumonia with pulmonary fibrosis. BNP was within normal limits for age at [age]. He was diagnosed with acute exacerbation of COPD and left lower lobe pneumonia. He was started on IV fluids, Rocephin, Zithromax, and IV steroids. He is given several updrafts. Arrangements were made for admission. He was started on Pulmicort and formeterol. He required the use of high flow nasal cannula. Pulmonary was consulted. Patient seen and examined at bedside. He reports that his breathing is somewhat better than on admission, however he is still feeling significantly short of breath. He denies any chest discomfort. He states that his cough is still nonproductive, but feels as though things are starting to break up. He had a bowel movement yesterday. No nausea. Objective - Vital Signs Vital signs: Vital Signs Temp 98.5 F 03/16/19 03:42 Pulse 92 03/16/19 07:50 Resp 18 03/16/19 03:42 BP 107/58 03/16/19 03:42 Pulse Ox 95 03/16/19 07:25 Intake & Output 03/15/19 03/16/19 03/16/19 18:59 06:59 18:59 Weight 90.718 kg 91.3 kg Other: # Voids 0 0 - Exam General: Ill appearing, mild distress, appears younger than stated age Derm: warm, dry Head: atraumatic, normocephalic, symmetric Eyes: EOMI, no lid lag, anicteric sclera Mouth: no lip lesion, mucus membranes moist Cardiovascular: S1S2 reg, no murmur, positive posterior tibial pulse bilateral, Lungs: Rhonchi throughout all lung ken, + accessory muscle use, +3 word conversational dyspnea, Abdominal: soft, nontender to palpation, no guarding, no appreciable organomegaly Ext: no gross muscle atrophy, trace edema, no contractures Neuro: CN II-XI grossly intact, no focal neuro deficits Psych: Alert, oriented, appropriate affect - Labs CBC & Chem 7: 03/16/19 06:20 03/16/19 06:20 Labs: Abnormal Lab Results - Last 24 Hours (Table) 03/15/19 03/15/19 03/15/19 Range/Units 14:50 14:50 14:50 WBC 15.8 H (3.8-10.6) k/uL RBC 4.24 L (4.30-5.90) m/uL Plt Count 511 H (150-450) k/uL Neutrophils # 13.3 H (1.3-7.7) k/uL Lymphocytes # (1.0-4.8) k/uL Monocytes # 1.1 H (0-1.0) k/uL PT 41.4 H (9.0-12.0) sec INR 4.3 H (<1.2) APTT 44.2 H (22.0-30.0) sec BUN 32 H (9-20) mg/dL Glucose 118 H (74-99) mg/dL POC Glucose (mg/dL) (75-99) mg/dL Phosphorus (2.5-4.5) mg/dL Magnesium 2.6 H (1.6-2.3) mg/dL 03/15/19 03/16/19 03/16/19 Range/Units 20:09 06:20 06:20 WBC 24.1 H (3.8-10.6) k/uL RBC (4.30-5.90) m/uL Plt Count 487 H (150-450) k/uL Neutrophils # 22.1 H (1.3-7.7) k/uL Lymphocytes # 0.9 L (1.0-4.8) k/uL Monocytes # (0-1.0) k/uL PT (9.0-12.0) sec INR (<1.2) APTT (22.0-30.0) sec BUN 38 H (9-20) mg/dL Glucose 147 H (74-99) mg/dL POC Glucose (mg/dL) 255 H (75-99) mg/dL Phosphorus 4.9 H (2.5-4.5) mg/dL Magnesium 2.8 H (1.6-2.3) mg/dL 03/16/19 03/16/19 Range/Units 06:20 06:28 WBC (3.8-10.6) k/uL RBC (4.30-5.90) m/uL Plt Count (150-450) k/uL Neutrophils # (1.3-7.7) k/uL Lymphocytes # (1.0-4.8) k/uL Monocytes # (0-1.0) k/uL PT 35.9 H (9.0-12.0) sec INR 3.7 H (<1.2) APTT (22.0-30.0) sec BUN (9-20) mg/dL Glucose (74-99) mg/dL POC Glucose (mg/dL) 131 H (75-99) mg/dL Phosphorus (2.5-4.5) mg/dL Magnesium (1.6-2.3) mg/dL Assessment and Plan Assessment: Pneumonia with sepsis as evidenced by elevated white blood cell count and tachypnea -Rocephin, Zithromax -No IV fluids secondary ejection fraction 20-25% -Pulmonary hygiene -Sputum culture -Mucinex -Chest x-ray until clear Acute exacerbation of COPD -Pulmicort and formoterol -DuoNeb -When necessary albuterol -Steroid burst and taper -Follow blood sugars on steroids -Pulmonary hygiene -Await pulm recs Acute hypoxic respiratory failure -Treatment as above Compensated systolic congestive heart failure with ejection fraction 20-25% - IV lasix X 1 - Lasix, aldactone - Continue with Lopressor, and Entresto A fib with supratherapeutic coumadin coagulopathy - hold coumadin again tongiht - INR in AM - tele - metoprolol, digoxin HTN, controlled - meds as outline above, follow BP HLD - statin DVT prophylaxis: Coumadin Discussed with: Patient, nursing Anticipated discharge date: 3-[address]: home A total of 35 minutes was spent on the care of this complex patient more than 50% of the time was spent in counseling and care coordination.
[2019-03-16 12:15] LABS: Glucose,Whole Blood 123 mg/dL (75-99)
[2019-03-16 17:01] LABS: Glucose,Whole Blood 197 mg/dL (75-99)
[2019-03-16] MEDS: MONTELUKAST 10 MG TAB PO SCH (20:59)
[2019-03-16] MEDS: DIGOXIN 125 MCG TAB PO SCH (20:59)
[2019-03-16] MEDS ORDERED: DIGOXIN 62.5 MCG TAB PO SCH (21:00)
--- NOTE | 2019-03-16 21:27 | CONS ---
CONSULTATION Genaro Ingram is an 84-year-old male who presented to the ED at [facility] on March 15, 2019. At that time he had come in with shortness of breath of about 5 days duration. This has been associated with wheezing associated with cough. He denied any clear fever or chills and was not bringing up any sputum. He subsequently was seen in the ER, was found to have a left lower zone infiltrate and subsequently was admitted for further evaluation, management after he did not improve in the ER with conservative care. PAST MEDICAL HISTORY: Positive for atrial fibrillation. History of AICD placement single-chamber, history of severe asthma due to allergic etiology. History of baseline COPD with nicotine dependence for which he continues to smoke. History of obstructive sleep apnea likely. The patient declined previous evaluation. History of obesity, history of congestive heart failure. FAMILY HISTORY: Positive for atrial fibrillation and asthma in his sister. SOCIAL HISTORY: Patient is a gerardo. He is exposed to organic does. He smokes about half pack of cigarettes per day. REVIEW OF SYSTEMS: Noncontributory. He has no known drug allergies. MEDICATIONS: Prior to admission were warfarin, digoxin, albuterol, Aldactone, Zocor, with Valsartan, Pulmicort, metoprolol, Lasix. PHYSICAL EXAMINATION: He was sitting in a chair. He was short of breath. His respiratory rate is 20, pulse is 74, temperature 96.1, blood pressure 101/54, O2 saturation on 10 L high-flow nasal cannula is 93%. HEENT reveals pupils are equal, mild prominence of the jugular vein. Chest reveals decreased breath sounds with prolonged expiration. Wheeze on forced exhalation. Cardiovascular system reveals an S1, S2. Abdomen is soft. There is trace pedal edema. LABS: Reveal a white count of 15.8, hemoglobin of 13.2, platelet count of 511,000. PT/INR of 4.3. Sodium 140, potassium 4.2, chloride 105, bicarb 23, BUN 32, creatinine of 1. Digoxin 0.5. NT proBNP 1950. Troponin 0.019. Chest x-ray showed early left lower zone infiltrate with ICD lead placement. IMPRESSION: At this time: 1. Asthma with chronic obstructive pulmonary disease with acute exacerbation. 2. Atrial fibrillation. 3. Coagulopathy in part due to Coumadin. 4. Status post AICD placement. 5. Nicotine dependence. At this point in time from a pulmonary standpoint, continue IV and aerosolized steroids. Continue bronchodilators. May need to discontinue formoterol if he starts to improve as he has a history of atrial fibrillation as well and an AICD to decrease his risk for cardiac arrhythmias. I would add montelukast to his regimen. Keep him on GI prophylaxis as he is coagulopathic. Would not add any further anticoagulation for his DVT prophylaxis. I would like to thank you for allowing me the privilege of participating in the care of my patient. We will follow him closely. Hopefully will be able to taper his steroids quickly and narrow his antibiotic regimen. Depending on how he does we should make further changes to his care. MIHIR / LO: [id number] /
[2019-03-16 21:59] LABS: Glucose,Whole Blood 231 mg/dL (75-99)
[2019-03-17 06:06] LABS: Glucose,Whole Blood 171 mg/dL (75-99)
[2019-03-17] MEDS: PANTOPRAZOLE 40 MG TABLET PO SCH (06:25)
[2019-03-17] MEDS: INSULIN ASPART (NovoLOG) 100 UNIT/ML VIAL SQ SCH ×4 (06:25→21:56)
[2019-03-17] MEDS: methylPREDNISolone SOD SUCCI 125 MG/2 ML VIAL IV SCH ×4 (06:26→23:22)
[2019-03-17 07:08] LABS: HCT 43.6 % (39.0-53.0); HGB 13.8 gm/dL (13.0-17.5); MCH 31.6 pg (25.0-35.0); MCHC 31.7 g/dL (31.0-37.0); MCV 99.7 fL (80.0-100.0); Mean Platelet Volume 7.6; Platelet Count 520 k/uL (150-450); RBC 4.37 m/uL (4.30-5.90); RDW 14.1 % (11.5-15.5)
[2019-03-17 07:21] LABS: Calcium 9.1 mg/dL (8.4-10.2); Magnesium 2.9 mg/dL (1.6-2.3); Potassium 5.3 mmol/L (3.5-5.1)
[2019-03-17] MEDS: IPRATROPIUM-ALBUTEROL 3 ML NEB INHALATION SCH ×4 (08:02→19:51)
[2019-03-17] MEDS: FORMOTEROL FUMARATE 20 MCG/2 ML NEBU INHALATION SCH ×2 (08:02→19:51)
[2019-03-17] MEDS: BUDESONIDE 1 MG/2 ML NEBU INHALATION SCH ×2 (08:03→19:51)
[2019-03-17 08:09] LABS: INR 3.1 (<1.2); Prothrombin Time 29.5 sec (9.0-12.0)
[2019-03-17] MEDS: NICOTINE 14MG/24HR PATCH TRANSDERM SCH (09:09)
[2019-03-17] MEDS: FUROSEMIDE 40 MG TAB PO SCH ×2 (09:19→16:12)
[2019-03-17] MEDS: AZITHROMYCIN 500 MG TAB PO SCH (09:19)
[2019-03-17] MEDS: ATORVASTATIN 10 MG TAB PO SCH (09:19)
[2019-03-17] MEDS: guaiFENesin 600 MG TABLET.ER PO SCH ×2 (09:19→20:38)
[2019-03-17] MEDS: SACUBITRIL/VALSARTAN 49 MG-51 MG TABLET PO SCH ×2 (09:19→20:38)
[2019-03-17] MEDS: METOPROLOL TARTRATE 50 MG TAB PO SCH ×2 (09:19→20:38)
[2019-03-17 12:17] LABS: Calcium 8.8 mg/dL (8.4-10.2); Potassium 4.7 mmol/L (3.5-5.1)
[2019-03-17 12:32] LABS: Glucose,Whole Blood 112 mg/dL (75-99)
--- NOTE | 2019-03-17 13:25 | CDI ---
Documentation Clarification Form Date: 03/17/2019 1:11:21 PM From: Tiffany Lyosn RN, CCDS Admit Date: 03/15/2019 4:06:00 PM Patient Name: Genaro Souza Visit Number: [id number] ATTENTION: The Clinical Documentation Specialists (CDI) and [facility] Coding Staff appreciate your assistance in clarifying documentation. Please respond to the clarification below the line at the bottom and electronically sign. The CDI & [facility] Coding staff will review the response and follow-up if needed. Please note: Queries are made part of the Legal Health Record. If you have any questions, please contact the author of this message via ITS. Dr. Cece Sarmiento Atrial Fibrillation is documented in the H&P and Progress notes and requires further Specificity. History/Risk Factors: Chronic systolic CHF with EF 25%, COPD, Atrial Fib, Asthma Clinical Indicators: 03/16 Attending Progress Note: "fib with supratherapeutic Coumadin coagulopathy - Hold Coumadin again tonight - INR - Tele Metoprolol, digoxin" 03/15 EC Note: "EKG/telemetry: EKG shows atrial fibrillation with occasional PVC at a rate of 91 bpm QRS 150 QTC is 412 QTC is 506." Treatment: Consults: Pulmonary Dig 250 mcg PO Q hs Lopressor 50 mg PO BID In your professional opinion, can you please clarify the type of Atrial Fibrillation, if known? Chronic/Permanent Paroxysmal Persistent Other, please specify Unable to determine (Last Revision: January 2018) Chronic A Fib MTDD
--- NOTE | 2019-03-17 14:15 | P.PN ---
Subjective Progress Note Date: 03/17/19 03/17/2019: Patient seen and examined. Patient states that he is feeling really good. He states he does not wear oxygen at home. However he has been told in the past that he does need oxygen. He is currently on 8 L nasal cannula with O2 saturation 97%. Patient is titrated down to 6 L nasal cannula. He denies fevers and chills. He denies chest pain. He denies shortness of breath. Objective - Vital Signs Vital signs: Vital Signs Temp 98.0 F 03/17/19 12:00 Pulse 86 03/17/19 12:00 Resp 18 03/17/19 12:00 BP 94/55 03/17/19 12:00 Pulse Ox 92 L 03/17/19 12:00 Intake & Output 03/16/19 03/17/19 03/17/19 18:59 06:59 18:59 Intake Total 430 50 410 Output Total 200 850 Balance 430 -150 -440 Weight 92.8 kg Intake: Oral 430 50 410 Output: Urine 200 850 Other: Voiding Method Urinal Urinal # Voids 1 1 1 - Exam general: Patient is alert and oriented 3, no acute distress Cardiovascular: Regular rate and rhythm, S1/S2 Lungs: Bilateral crackles Abdomen: Soft nontender nondistended positive bowel sounds Extremities: Trace edema - Labs CBC & Chem 7: 03/17/19 06:16 03/17/19 11:33 Labs: Abnormal Lab Results - Last 24 Hours (Table) 03/16/19 03/16/19 03/17/19 Range/Units 16:43 21:58 06:05 WBC (3.8-10.6) k/uL Plt Count (150-450) k/uL PT (9.0-12.0) sec INR (<1.2) Potassium (3.5-5.1) mmol/L BUN (9-20) mg/dL Glucose (74-99) mg/dL POC Glucose (mg/dL) 197 H 231 H 171 H (75-99) mg/dL Magnesium (1.6-2.3) mg/dL 03/17/19 03/17/19 03/17/19 Range/Units 06:16 06:16 06:16 WBC 27.0 H (3.8-10.6) k/uL Plt Count 520 H (150-450) k/uL PT 29.5 H (9.0-12.0) sec INR 3.1 H (<1.2) Potassium 5.3 H (3.5-5.1) mmol/L BUN 55 H (9-20) mg/dL Glucose 150 H (74-99) mg/dL POC Glucose (mg/dL) (75-99) mg/dL Magnesium 2.9 H (1.6-2.3) mg/dL 03/17/19 03/17/19 Range/Units 11:33 12:11 WBC (3.8-10.6) k/uL Plt Count (150-450) k/uL PT (9.0-12.0) sec INR (<1.2) Potassium (3.5-5.1) mmol/L BUN 56 H (9-20) mg/dL Glucose 170 H (74-99) mg/dL POC Glucose (mg/dL) 112 H (75-99) mg/dL Magnesium (1.6-2.3) mg/dL Microbiology - Last 24 Hours (Table) 03/15/19 14:50 Blood Culture - Preliminary Blood No Growth after 24 hours Assessment and Plan Assessment: Acute on chronic hypoxic respiratory failure Left lower lobe community-acquired pneumonia Acute exacerbation of asthma and COPD, unknown type Systolic congestive heart failure, acute exacerbation, ejection fraction 20-25% Atrial fibrillation history, status post AICD O2 to maintain saturation greater than or equal to 90% Steroid taper Pulmicort and DuoNeb Perforomist Singulair Gentle diuresis Antibiotics Sputum culture Patient is titrated down to 6 L nasal cannula, continue to monitor oxygen saturation Anticoagulation with Coumadin Incentive spirometry and pulmonary hygiene GI and DVT prophylaxis
[2019-03-17 17:17] LABS: Glucose,Whole Blood 182 mg/dL (75-99)
--- NOTE | 2019-03-17 18:14 | P.PN ---
Subjective Progress Note Date: 03/17/19 (Delayed charting seen at 10 AM) Principal diagnosis: shortness of breath Patient is an 84-year-old male past medical history of systolic congestive heart failure with ejection fraction 20-25%, atrial fibrillation on Coumadin therapy, hypertension, and COPD presented to the ER with shortness of breath. In the ER he underwent an extensive evaluation. On initial vital signs his found have a respiratory rate of 30 and a room air sat of 87%. Initial laboratory analysis revealed a white blood cell count 15.8, platelets of 511, BP 132, glucose 118, and INR 4.3. Chest x-ray revealed a left lower lobe pneumonia with pulmonary fibrosis. BNP was within normal limits for age at [age]. He was diagnosed with acute exacerbation of COPD and left lower lobe pneumonia. He was started on IV fluids, Rocephin, Zithromax, and IV steroids. He is given several updrafts. Arrangements were made for admission. He was started on Pulmicort and formeterol. He required the use of high flow nasal cannula. Pulmonary was consulted who recommended continuing with current treatment. He continued to improve. Patient seen and examined at bedside. Still SOB when trying to moved, no chest pain, + Fatigue, Still with cough that is now productive of scant sputum, less nasal congestion, no diarrhea or constipation. Objective - Vital Signs Vital signs: Vital Signs Temp 97.6 F 03/17/19 16:00 Pulse 78 03/17/19 16:52 Resp 18 03/17/19 16:00 BP 106/57 03/17/19 16:00 Pulse Ox 92 L 03/17/19 16:45 Intake & Output 03/16/19 03/17/19 03/17/19 18:59 06:59 18:59 Intake Total 430 50 410 Output Total 200 850 Balance 430 -150 -440 Weight 92.8 kg Intake: Oral 430 50 410 Output: Urine 200 850 Other: Voiding Method Urinal Urinal # Voids 1 1 1 - Exam General: Ill appearing, no distress, appears younger than stated age Derm: warm, dry Head: atraumatic, normocephalic, symmetric Eyes: EOMI, no lid lag, anicteric sclera Mouth: no lip lesion, mucus membranes moist Cardiovascular: S1S2 irreg, no murmur, positive posterior tibial pulse bilateral, Lungs: Rhonchi throughout all lung ken, no accessory muscle use, no onversational dyspnea, Abdominal: soft, nontender to palpation, no guarding, no appreciable o rganomegaly Ext: no gross muscle atrophy, trace edema, no contractures Neuro: CN II-XI grossly intact, no focal neuro deficits Psych: Alert, oriented, appropriate affect - Labs CBC & Chem 7: 03/17/19 06:16 03/17/19 11:33 Labs: Abnormal Lab Results - Last 24 Hours (Table) 03/16/19 03/17/19 03/17/19 Range/Units 21:58 06:05 06:16 WBC (3.8-10.6) k/uL Plt Count (150-450) k/uL PT 29.5 H (9.0-12.0) sec INR 3.1 H (<1.2) Potassium (3.5-5.1) mmol/L BUN (9-20) mg/dL Glucose (74-99) mg/dL POC Glucose (mg/dL) 231 H 171 H (75-99) mg/dL Magnesium (1.6-2.3) mg/dL 03/17/19 03/17/19 03/17/19 Range/Units 06:16 06:16 11:33 WBC 27.0 H (3.8-10.6) k/uL Plt Count 520 H (150-450) k/uL PT (9.0-12.0) sec INR (<1.2) Potassium 5.3 H (3.5-5.1) mmol/L BUN 55 H 56 H (9-20) mg/dL Glucose 150 H 170 H (74-99) mg/dL POC Glucose (mg/dL) (75-99) mg/dL Magnesium 2.9 H (1.6-2.3) mg/dL 03/17/19 03/17/19 Range/Units 12:11 16:49 WBC (3.8-10.6) k/uL Plt Count (150-450) k/uL PT (9.0-12.0) sec INR (<1.2) Potassium (3.5-5.1) mmol/L BUN (9-20) mg/dL Glucose (74-99) mg/dL POC Glucose (mg/dL) 112 H 182 H (75-99) mg/dL Magnesium (1.6-2.3) mg/dL Microbiology - Last 24 Hours (Table) 03/15/19 14:50 Blood Culture - Preliminary Blood No Growth after 48 hours Assessment and Plan Assessment: Community Acquired Pneumonia with sepsis -Rocephin, Zithromax -No IV fluids secondary ejection fraction 20-25% -Pulmonary hygiene -Sputum culture -Mucinex -Chest x-ray until clear Acute exacerbation of COPD/Asthma -Pulmicort and formoterol, singulair -DuoNeb -When necessary albuterol -Steroid burst and taper -Follow blood sugars on steroids -Pulmonary hygiene -pulm recs appreciated Hyperkalemia - hold aldactone today - repeat at noon - if improved in AM then resume aldactone Acute hypoxic respiratory failure -Treatment as above Thrombosis -likely reactive - outpatient follow-up Compensated systolic congestive heart failure with ejection fraction 20-25% - IV lasix X 1 - Lasix, aldactone - Continue with Lopressor, and Entresto Chronic A fib with supratherapeutic coumadin coagulopathy - coumadin 2mg tonight - INR in AM - tele - metoprolol, digoxin (has been dose reduced to zithromax) HTN, controlled - meds as outline above, follow BP HLD - statin DVT prophylaxis: Coumadin Discussed with: Patient, nursing Anticipated discharge date: 2-[address]: home A total of 35 minutes was spent on the care of this complex patient more than 50% of the time was spent in counseling and care coordination.
[2019-03-17] MEDS ORDERED: WARFARIN 2 MG TAB PO ONE (18:15)
[2019-03-17] MEDS: MONTELUKAST 10 MG TAB PO SCH (20:38)
[2019-03-17] MEDS: DIGOXIN 125 MCG TAB PO SCH (20:38)
[2019-03-17 21:01] LABS: Glucose,Whole Blood 164 mg/dL (75-99)
[2019-03-18 05:50] LABS: Glucose,Whole Blood 137 mg/dL (75-99)
[2019-03-18] MEDS: INSULIN ASPART (NovoLOG) 100 UNIT/ML VIAL SQ SCH ×4 (06:47→20:49)
[2019-03-18] MEDS: methylPREDNISolone SOD SUCCI 125 MG/2 ML VIAL IV SCH (06:47)
[2019-03-18] MEDS: PANTOPRAZOLE 40 MG TABLET PO SCH (06:53)
[2019-03-18] MEDS: FORMOTEROL FUMARATE 20 MCG/2 ML NEBU INHALATION SCH ×2 (07:57→20:33)
[2019-03-18] MEDS: BUDESONIDE 1 MG/2 ML NEBU INHALATION SCH ×2 (07:57→20:33)
[2019-03-18] MEDS: IPRATROPIUM-ALBUTEROL 3 ML NEB INHALATION SCH ×4 (07:57→20:33)
[2019-03-18 08:05] LABS: HCT 45.1 % (39.0-53.0); HGB 14.1 gm/dL (13.0-17.5); MCH 31.4 pg (25.0-35.0); MCHC 31.3 g/dL (31.0-37.0); MCV 100.2 fL (80.0-100.0); Mean Platelet Volume 7.1; Platelet Count 591 k/uL (150-450); RBC 4.51 m/uL (4.30-5.90); RDW 13.1 % (11.5-15.5); WBC 31.2 k/uL (3.8-10.6)
[2019-03-18 08:13] LABS: INR 2.1 (<1.2); Prothrombin Time 20.4 sec (9.0-12.0)
[2019-03-18 08:32] LABS: Calcium 8.9 mg/dL (8.4-10.2); Potassium 5.2 mmol/L (3.5-5.1)
--- NOTE | 2019-03-18 09:05 | XR ---
EXAMINATION TYPE: XR chest 1V portable DATE OF EXAM: 03/18/2019 COMPARISON: Prior chest x-ray 03/16/[address] 10/21/2014 HISTORY: Pneumonia TECHNIQUE: Single frontal view of the chest is obtained. FINDINGS: There are overlying cardiac leads. Generator is present in the left pectoral region, intra cardiac defibrillator lead is present. Heart is enlarged. Aorta is dense and ectatic. Persistent blun ting the costophrenic angles is noted. No pneumothorax. Bibasilar patchy density persists, pulmonary artery appears prominently. Patient's previously identified lung nodules are not seen on today's exam . Patient is rotated. IMPRESSION: Subsegmental atelectatic changes are present with associated small effusion suspected. S table cardiomegaly. There is an aortic aneurysm, consider pulmonary artery hypertension. Additional f indings above.
[2019-03-18] MEDS: NICOTINE 14MG/24HR PATCH TRANSDERM SCH (09:24)
[2019-03-18] MEDS: ATORVASTATIN 10 MG TAB PO SCH (09:28)
[2019-03-18] MEDS: SACUBITRIL/VALSARTAN 49 MG-51 MG TABLET PO SCH ×2 (09:28→20:39)
[2019-03-18] MEDS: AZITHROMYCIN 500 MG TAB PO SCH (09:29)
[2019-03-18] MEDS: FUROSEMIDE 40 MG TAB PO SCH ×2 (09:29→17:36)
[2019-03-18] MEDS: guaiFENesin 600 MG TABLET.ER PO SCH ×2 (09:29→20:39)
[2019-03-18] MEDS: METOPROLOL TARTRATE 50 MG TAB PO SCH ×2 (09:29→20:39)
[2019-03-18 11:49] LABS: Glucose,Whole Blood 144 mg/dL (75-99)
--- NOTE | 2019-03-18 15:43 | P.PN ---
Subjective Progress Note Date: 03/18/19 03/18/2019: Patient seen and examined. Patient states he is feeling better today. He denies fevers and chills. He is down to 2 L nasal cannula. O2 saturation is 93%. Objective - Vital Signs Vital signs: Vital Signs Temp 97.5 F L 03/18/19 12:00 Pulse 60 03/18/19 13:12 Resp 18 03/18/19 12:00 BP 115/58 03/18/19 12:00 Pulse Ox 95 03/18/19 12:00 Intake & Output 03/17/19 03/18/19 03/18/19 18:59 06:59 18:59 Intake Total 410 530 Output Total 1250 350 Balance -840 -350 530 Weight 92.5 kg Intake: Intake, IV Titration 50 Amount cefTRIAXone 1 gm In 50 Sodium Chloride 0.9% 50 ml @ 100 mls/hr IVPB Q24HR MARILYN Rx#:[id number] Oral 410 480 Output: Urine 1250 350 Other: Voiding Method Urinal Urinal Urinal # Voids 1 1 1 # Bowel Movements 1 - Exam general: Patient is alert and oriented 3, no acute distress Cardiovascular: Regular rate and rhythm, S1/S2 Lungs: Bilateral crackles Abdomen: Soft nontender nondistended positive bowel sounds Extremities: Trace edema - Labs CBC & Chem 7: 03/18/19 07:31 03/18/19 07:31 Labs: Abnormal Lab Results - Last 24 Hours (Table) 03/17/19 03/17/19 03/18/19 Range/Units 16:49 21:00 05:49 WBC (3.8-10.6) k/uL MCV (80.0-100.0) fL Plt Count (150-450) k/uL PT (9.0-12.0) sec INR (<1.2) Potassium (3.5-5.1) mmol/L Chloride (98-107) mmol/L Carbon Dioxide (22-30) mmol/L BUN (9-20) mg/dL Glucose (74-99) mg/dL POC Glucose (mg/dL) 182 H 164 H 137 H (75-99) mg/dL 03/18/19 03/18/19 03/18/19 Range/Units 07:31 07:31 07:31 WBC 31.2 H (3.8-10.6) k/uL MCV 100.2 H (80.0-100.0) fL Plt Count 591 H (150-450) k/uL PT 20.4 H (9.0-12.0) sec INR 2.1 H (<1.2) Potassium 5.2 H (3.5-5.1) mmol/L Chloride 109 H (98-107) mmol/L Carbon Dioxide 20 L (22-30) mmol/L BUN 54 H (9-20) mg/dL Glucose 150 H (74-99) mg/dL POC Glucose (mg/dL) (75-99) mg/dL 03/18/19 Range/Units 11:47 WBC (3.8-10.6) k/uL MCV (80.0-100.0) fL Plt Count (150-450) k/uL PT (9.0-12.0) sec INR (<1.2) Potassium (3.5-5.1) mmol/L Chloride (98-107) mmol/L Carbon Dioxide (22-30) mmol/L BUN (9-20) mg/dL Glucose (74-99) mg/dL POC Glucose (mg/dL) 144 H (75-99) mg/dL Microbiology - Last 24 Hours (Table) 03/15/19 14:50 Blood Culture - Preliminary Blood No Growth after 48 hours Assessment and Plan Assessment: Acute on chronic hypoxic respiratory failure Left lower lobe community-acquired pneumonia Acute exacerbation of asthma and COPD, unknown type Systolic congestive heart failure, acute exacerbation, ejection fraction 20-25% Atrial fibrillation history, status post AICD O2 to maintain saturation greater than or equal to 90% Steroid taper Pulmicort and DuoNeb Perforomist Singulair Gentle diuresis Antibiotics Sputum culture Patient is titrated down to 2 L nasal cannula, continue to monitor oxygen saturation Anticoagulation with Coumadin Incentive spirometry and pulmonary hygiene GI and DVT prophylaxis Echcardiogram
[2019-03-18] MEDS ORDERED: FUROSEMIDE 10 MG/ML 4 ML VIAL IV STA (15:51)
--- NOTE | 2019-03-18 16:00 | P.PN ---
Subjective Progress Note Date: 03/18/19 (Delayed charting patient seen at 9:30 AM) Principal diagnosis: shortness of breath Patient is an 84-year-old male past medical history of systolic congestive heart failure with ejection fraction 20-25%, atrial fibrillation on Coumadin therapy, hypertension, and COPD presented to the ER with shortness of breath. In the ER he underwent an extensive evaluation. On initial vital signs his found have a respiratory rate of 30 and a room air sat of 87%. Initial laboratory analysis revealed a white blood cell count 15.8, platelets of 511, BP 132, glucose 118, and INR 4.3. Chest x-ray revealed a left lower lobe pneumonia with pulmonary fibrosis. BNP was within normal limits for age at [age]. He was diagnosed with acute exacerbation of COPD and left lower lobe pneumonia. He was started on IV fluids, Rocephin, Zithromax, and IV steroids. He is given several updrafts. Arrangements were made for admission. He was started on Pulmicort and formeterol. He required the use of high flow nasal cannula. Pulmonary was consulted who recommended continuing with current treatment. He continued to improve. White blood cell count continued to elevate which was felt to be secondary to steroids. Patient seen and examined at bedside. Denies any chest pain. Shortness of breath is better. Wheezing is less. Able to move around more. Wants to go home. Denies any nausea, vomiting, or diarrhea. Objective - Vital Signs Vital signs: Vital Signs Temp 97.5 F L 03/18/19 12:00 Pulse 60 03/18/19 13:12 Resp 18 03/18/19 12:00 BP 115/58 03/18/19 12:00 Pulse Ox 95 03/18/19 12:00 Intake & Output 03/17/19 03/18/19 03/18/19 18:59 06:59 18:59 Intake Total 410 530 Output Total 1250 350 Balance -840 -350 530 Weight 92.5 kg Intake: Intake, IV Titration 50 Amount cefTRIAXone 1 gm In 50 Sodium Chloride 0.9% 50 ml @ 100 mls/hr IVPB Q24HR [facility]ILYN Rx#:[id number] Oral 410 480 Output: Urine 1250 350 Other: Voiding Method Urinal Urinal Urinal # Voids 1 1 1 # Bowel Movements 1 - Exam General: Non toxic, no distress, appears younger than stated age Derm: warm, dry Head: atraumatic, normocephalic, symmetric Eyes: EOMI, no lid lag, anicteric sclera Mouth: no lip lesion, mucus membranes moist Cardiovascular: S1S2 irreg, no murmur, positive posterior tibial pulse bilateral, Lungs:Faint wheeze bilateral, no accessory muscle use, no onversational dyspnea, Abdominal: soft, nontender to palpation, no guarding, no appreciable organomegaly Ext: no gross muscle atrophy, 2+ edema, no contractures Neuro: CN II-XI grossly intact, no focal neuro deficits Psych: Alert, oriented, appropriate affect - Labs CBC & Chem 7: 03/18/19 07:31 03/18/19 07:31 Labs: Abnormal Lab Results - Last 24 Hours (Table) 03/17/19 03/17/19 03/18/19 Range/Units 16:49 21:00 05:49 WBC (3.8-10.6) k/uL MCV (80.0-100.0) fL Plt Count (150-450) k/uL PT (9.0-12.0) sec INR (<1.2) Potassium (3.5-5.1) mmol/L Chloride (98-107) mmol/L Carbon Dioxide (22-30) mmol/L BUN (9-20) mg/dL Glucose (74-99) mg/dL POC Glucose (mg/dL) 182 H 164 H 137 H (75-99) mg/dL 03/18/19 03/18/19 03/18/19 Range/Units 07:31 07:31 07:31 WBC 31.2 H (3.8-10.6) k/uL MCV 100.2 H (80.0-100.0) fL Plt Count 591 H (150-450) k/uL PT 20.4 H (9.0-12.0) sec INR 2.1 H (<1.2) Potassium 5.2 H (3.5-5.1) mmol/L Chloride 109 H (98-107) mmol/L Carbon Dioxide 20 L (22-30) mmol/L BUN 54 H (9-20) mg/dL Glucose 150 H (74-99) mg/dL POC Glucose (mg/dL) (75-99) mg/dL 06/11/19 Range/Units 11:47 WBC (3.8-10.6) k/uL MCV (80.0-100.0) fL Plt Count (150-450) k/uL PT (9.0-12.0) sec INR (<1.2) Potassium (3.5-5.1) mmol/L Chloride (98-107) mmol/L Carbon Dioxide (22-30) mmol/L BUN (9-20) mg/dL Glucose (74-99) mg/dL POC Glucose (mg/dL) 144 H (75-99) mg/dL Microbiology - Last 24 Hours (Table) 03/15/19 14:50 Blood Culture - Preliminary Blood No Growth after 48 hours Assessment and Plan Assessment: Community Acquired Pneumonia with sepsis -Rocephin, Zithromax -No IV fluids secondary ejection fraction 20-25% -Pulmonary hygiene -Sputum culture -Mucinex -Chest x-ray until clear -Pulmonary recs appreciated -Chest x-ray improving possible pulmonary hypertension -Echo ordered by pulmonary Leukocytosis -Suspect increased secondary to IV steroids -Steroids decreased today as patient is improving -Repeat WBC in a.m. -Afebrile Acute exacerbation of COPD/Asthma -Pulmicort and formoterol, singulair -DuoNeb -When necessary albuterol -Steroid burst and taper -Follow blood sugars on steroids -Pulmonary hygiene -pulm recs appreciated Hyperkalemia, - hold aldactone again today, resume in am if improved - repeat in AM Acute hypoxic respiratory failure -Treatment as above Thrombosis -likely reactive - outpatient follow-up Compensated systolic congestive heart failure with ejection fraction 20-25% - IV lasix X 1 today - Lasix, aldactone on hold due to mild hyperkalemia - Continue with Lopressor, and Entresto Chronic A fib with supratherapeutic coumadin coagulopathy - coumadin 4mg tonight - INR in AM - tele - metoprolol, digoxin (has been dose reduced to zithromax) HTN, controlled - meds as outline above, follow BP HLD - statin Transfer to F DVT prophylaxis: Coumadin Discussed with: Patient, nursing Anticipated discharge date: in AM if hyperkalemia improved Anticipated discharge place: home A total of 35 minutes was spent on the care of this complex patient more than 50% of the time was spent in counseling and care coordination.
[2019-03-18 17:03] LABS: Glucose,Whole Blood 138 mg/dL (75-99)
[2019-03-18] MEDS: WARFARIN 2 MG TAB PO SCH (17:44)
[2019-03-18] MEDS: DIGOXIN 125 MCG TAB PO SCH (20:39)
[2019-03-18] MEDS: methylPREDNISolone SOD SUCCI 40 MG/ML 1 ML VIAL IV SCH (20:40)
[2019-03-18] MEDS: MONTELUKAST 10 MG TAB PO SCH (20:40)
[2019-03-18 20:45] LABS: Glucose,Whole Blood 140 mg/dL (75-99)
[2019-03-18] MEDS ORDERED: methylPREDNISolone SOD SUCCI 125 MG/2 ML VIAL IV SCH (21:00)
[2019-03-19 06:11] LABS: Glucose,Whole Blood 121 mg/dL (75-99)
[2019-03-19] MEDS: INSULIN ASPART (NovoLOG) 100 UNIT/ML VIAL SQ SCH ×2 (06:22→13:00)
[2019-03-19 06:27] LABS: HGB 14.1 gm/dL (13.0-17.5); MCH 31.3 pg (25.0-35.0); MCHC 31.3 g/dL (31.0-37.0); MCV 99.8 fL (80.0-100.0); Mean Platelet Volume 6.9; Platelet Count 604 k/uL (150-450); RBC 4.51 m/uL (4.30-5.90); RDW 13.1 % (11.5-15.5); WBC 23.4 k/uL (3.8-10.6)
[2019-03-19] MEDS: PANTOPRAZOLE 40 MG TABLET PO SCH (06:31)
[2019-03-19 06:35] LABS: Calcium 8.8 mg/dL (8.4-10.2); Magnesium 2.7 mg/dL (1.6-2.3); Potassium 5.1 mmol/L (3.5-5.1)
[2019-03-19 06:44] LABS: INR 1.7 (<1.2)
[2019-03-19] MEDS: FUROSEMIDE 40 MG TAB PO SCH ×2 (08:10→16:32)
[2019-03-19] MEDS: SACUBITRIL/VALSARTAN 49 MG-51 MG TABLET PO SCH (08:10)
[2019-03-19] MEDS: ATORVASTATIN 10 MG TAB PO SCH (08:10)
[2019-03-19] MEDS: METOPROLOL TARTRATE 50 MG TAB PO SCH (08:10)
[2019-03-19] MEDS: guaiFENesin 600 MG TABLET.ER PO SCH (08:10)
[2019-03-19] MEDS: NICOTINE 14MG/24HR PATCH TRANSDERM SCH (08:11)
[2019-03-19] MEDS: methylPREDNISolone SOD SUCCI 40 MG/ML 1 ML VIAL IV SCH (08:11)
[2019-03-19] MEDS: IPRATROPIUM-ALBUTEROL 3 ML NEB INHALATION SCH ×3 (08:39→15:28)
[2019-03-19] MEDS: FORMOTEROL FUMARATE 20 MCG/2 ML NEBU INHALATION SCH (08:39)
[2019-03-19] MEDS: BUDESONIDE 1 MG/2 ML NEBU INHALATION SCH (08:39)
[2019-03-19 11:12] VITALS: RESP 20; TEMP 97.5
[2019-03-19 11:49] LABS: Glucose,Whole Blood 109 mg/dL (75-99)
[2019-03-19] MEDS: AZITHROMYCIN 500 MG TAB PO SCH (13:03)
--- NOTE | 2019-03-19 13:56 | P.PN ---
Subjective Progress Note Date: 03/19/19 03/19/2017: Patient seen and examined. Patient sitting up in the chair on room air. O2 saturation 91%. The patient states he wants to go home today. He states he feels fine. Objective - Vital Signs Vital signs: Vital Signs Temp 97.5 F L 03/19/19 08:00 Pulse 64 03/19/19 12:18 Resp 20 03/19/19 08:00 BP 113/55 03/19/19 08:00 Pulse Ox 94 L 03/19/19 08:00 Intake & Output 03/18/19 03/19/19 03/19/19 18:59 06:59 18:59 Intake Total 890 1200 Output Total 250 Balance 890 -250 1200 Weight 92.6 kg Intake: Intake, IV Titration 50 Amount cefTRIAXone 1 gm In 50 Sodium Chloride 0.9% 50 ml @ 100 mls/hr IVPB Q24HR [facility]ILY[facility] Rx#:[id number] Oral 840 1200 Output: Urine 250 Other: Voiding Method Urinal Toilet Toilet Urinal Urinal # Voids 1 1 2 # Bowel Movements 1 - Exam general: Patient is alert and oriented 3, no acute distress Cardiovascular: Regular rate and rhythm, S1/S2 Lungs: Bilateral crackles Abdomen: Soft nontender nondistended positive bowel sounds Extremities: Trace edema - Labs CBC & Chem 7: 03/19/19 05:59 03/19/19 05:59 Labs: Abnormal Lab Results - Last 24 Hours (Table) 03/18/19 03/18/19 03/19/19 Range/Units 16:41 20:44 05:59 WBC (3.8-10.6) k/uL Plt Count (150-450) k/uL PT 17.0 H (9.0-12.0) sec INR 1.7 H (<1.2) BUN (9-20) mg/dL Glucose (74-99) mg/dL POC Glucose (mg/dL) 138 H 140 H (75-99) mg/dL Magnesium (1.6-2.3) mg/dL 03/19/19 03/19/19 03/19/19 Range/Units 05:59 05:59 06:09 WBC 23.4 H (3.8-10.6) k/uL Plt Count 604 H (150-450) k/uL PT (9.0-12.0) sec INR (<1.2) BUN 51 H (9-20) mg/dL Glucose 121 H (74-99) mg/dL POC Glucose (mg/dL) 121 H (75-99) mg/dL Magnesium 2.7 H (1.6-2.3) mg/dL 03/19/19 Range/Units 11:46 WBC (3.8-10.6) k/uL Plt Count (150-450) k/uL PT (9.0-12.0) sec INR (<1.2) BUN (9-20) mg/dL Glucose (74-99) mg/dL POC Glucose (mg/dL) 109 H (75-99) mg/dL Magnesium (1.6-2.3) mg/dL Microbiology - Last 24 Hours (Table) 03/15/19 14:50 Blood Culture - Preliminary Blood No Growth after 72 hours Assessment and Plan Assessment: Acute on chronic hypoxic respiratory failure Left lower lobe community-acquired pneumonia Acute exacerbation of asthma and COPD, unknown type Systolic congestive heart failure, acute exacerbation, ejection fraction 20-25% Atrial fibrillation history, status post AICD O2 to maintain saturation greater than or equal to 90% Steroid taper Pulmicort and DuoNeb Perforomist Singulair Gentle diuresis Antibiotics Sputum culture Patient is titrated down to 2 L nasal cannula, continue to monitor oxygen saturation Anticoagulation with Coumadin Incentive spirometry and pulmonary hygiene GI and DVT prophylaxis Echcardiogram pending Home O2 evaluation prior to discharge Okay to DC from pulmonary standpoint with close outpatient follow-up.
--- NOTE | 2019-03-19 15:04 | P.DS ---
Providers Date of admission: 03/15/19 16:06 Expected date of discharge: 03/19/19 Attending physician: Cece Sarmiento DO Consults: 03/15/19 17:16 Consult Physician Routine Consulting Provider: Darshan Garcia Consult Reason/Comments: Pneumonia, AE COPD Do you want consulting provider notified?: Yes Primary care physician: Anusha Sommers MD Hospital Course: Discharge diagnosis Acute hypoxic respiratory failure Sepsis Community-acquired pneumonia Acute COPD exacerbation with asthma Hyperkalemia Chronic systolic CHF Essential hypertension Hyperlipidemia Chronic atrial fibrillation on anticoagulation with Coumadin Reactive thrombocytosis Patient is an 84-year-old male past medical history of systolic congestive heart failure with ejection fraction 20-25%, atrial fibrillation on Coumadin therapy, hypertension, and COPD presented to the ER with shortness of breath. In the ER he underwent an extensive evaluation. On initial vital signs his found have a respiratory rate of 30 and a room air sat of 87%. Initial laboratory analysis revealed a white blood cell count 15.8, platelets of 511, BP 132, glucose 118, and INR 4.3. Chest x-ray revealed a left lower lobe pneumonia with pulmonary fibrosis. BNP was within normal limits for age at [age]. He was diagnosed with acute exacerbation of COPD and left lower lobe pneumonia. He was started on IV fluids, Rocephin, Zithromax, and IV steroids. He is given several updrafts. Arrangements were made for admission. He was started on Pulmicort and formeterol. He required the use of high flow nasal cannula. Pulmonary was consulted who recommended continuing with current treatment. He continued to improve. White blood cell count continued to elevate which was felt to be secondary to steroids. The patient passes home O2 evaluation and was subsequently discharged home on a prednisone taper and antibiotics with azithromycin. This discharge process took approximately 35 minutes Focused exam Respiratory: Diminished in the bases, clear to auscultation, unlabored Patient Condition at Discharge: Good Plan - Discharge Summary Discharge Rx Participant: No New Discharge Prescriptions: New predniSONE 40 mg PO DAILY #12 tab Azithromycin [Zithromax] 500 mg PO DAILY@1200 #3 tab Continue Budesonide [Pulmicort] 0.5 mg INHALATION RT-BID Albuterol Inhaler [Ventolin Hfa Inhaler] 2 puff INHALATION RT-Q6H PRN PRN Reason: Shortness Of Breath Simvastatin [Zocor] 10 mg PO DAILY Metoprolol Tartrate [Lopressor] 50 mg PO BID Furosemide [Lasix] 40 mg PO BID Digoxin [Lanoxin] 250 mcg PO HS Warfarin [Coumadin] 7.5 mg PO SUFR Warfarin [Coumadin] 3.75 mg PO MOTUWETHSA Spironolactone [Aldactone] 25 mg PO DAILY Sacubitril/Valsartan [Entresto 49 mg-51 mg Tablet] 1 tab PO BID Discharge Medication List Albuterol Inhaler [Ventolin Hfa Inhaler] 2 puff INHALATION RT-Q6H PRN 11/16/14 [History] Budesonide [Pulmicort] 0.5 mg INHALATION RT-BID 11/16/14 [History] Digoxin [Lanoxin] 250 mcg PO HS 11/16/14 [History] Furosemide [Lasix] 40 mg PO BID 11/16/14 [History] Metoprolol Tartrate [Lopressor] 50 mg PO BID 11/16/14 [History] Simvastatin [Zocor] 10 mg PO DAILY 11/16/14 [History] Warfarin [Coumadin] 3.75 mg PO MOTUWETHSA 05/23/16 [History] Warfarin [Coumadin] 7.5 mg PO SUFR 05/23/16 [History] Sacubitril/Valsartan [Entresto 49 mg-51 mg Tablet] 1 tab PO BID 03/15/19 [History] Spironolactone [Aldactone] 25 mg PO DAILY 03/15/19 [History] Azithromycin [Zithromax] 500 mg PO DAILY@1200 #3 tab 03/19/19 [Rx] predniSONE 40 mg PO DAILY #12 tab 03/19/19 [Rx] Follow up Appointment(s)/Referral(s): Anusha Sommers MD [Primary Care Provider] - 03/25/19 5:00 pm (Sunday) Kareen Norman DO [Doctor of Osteopathic Medicine] - 03/28/19 10:15 am (Sunday) Patient Instructions/Handouts: COPD (Chronic Obstructive Pulmonary Disease) (DC) Discharge Disposition: HOME SELF-CARE
[2019-03-19] MEDS: WARFARIN 2 MG TAB PO SCH (16:32)
[2019-03-19 17:36] VITALS: BP 100/50; PULSE 60
[2019-03-20] MEDS ORDERED: predniSONE 20 MG TAB PO SCH (09:00)
== END 2019-03-19 17:15 | disposition home or self-care (01) | DRG 871 ==
LOC: EC 14:00 → 3SCARD 16:06
PROVIDERS: ADMIT Internal Medicine; ATTEND Internal Medicine
DX: A41.9 Sepsis, unspecified organism (principal); J18.9 Pneumonia, unspecified organism; J96.21 Acute and chronic respiratory failure with hypoxia; D68.9 Coagulation defect, unspecified; I42.9 Cardiomyopathy, unspecified; I50.22 Chronic systolic (congestive) heart failure; J44.0 Chronic obstructive pulmonary disease with (acute) lower respiratory infection; J44.1 Chronic obstructive pulmonary disease with (acute) exacerbation; J45.901 Unspecified asthma with (acute) exacerbation; E78.5 Hyperlipidemia, unspecified; E87.5 Hyperkalemia; F17.210 Nicotine dependence, cigarettes, uncomplicated; G47.33 Obstructive sleep apnea (adult) (pediatric); I11.0 Hypertensive heart disease with heart failure; I48.2 Chronic atrial fibrillation; I49.3 Ventricular premature depolarization; J84.10 Pulmonary fibrosis, unspecified; T38.0X5A Adverse effect of glucocorticoids and synthetic analogues, initial encounter; T45.515A Adverse effect of anticoagulants, initial encounter; Z79.01 Long term (current) use of anticoagulants; Z79.899 Other long term (current) drug therapy; Z82.5 Family history of asthma and other chronic lower respiratory diseases; Z85.828 Personal history of other malignant neoplasm of skin; Z95.810 Presence of automatic (implantable) cardiac defibrillator; Z82.49 Family history of ischemic heart disease and other diseases of the circulatory system; M19.90 Unspecified osteoarthritis, unspecified site; Z57.4 Occupational exposure to toxic agents in agriculture; D69.59 Other secondary thrombocytopenia
CPT/HCPCS: 36415; 71045; 71046; 80048; 80053; 80162; 83605; 83735; 83880; 84100; 84484; 85025; 85027; 85610; 85730; 87040; 93005; 93306; 94640; 94760; 96365; 96367; 96375; 99285